=== PATIENT | female | born 1995 ===

== ENCOUNTER 2025-02-28 17:43 | Inpatient (IN) | payer BC ==
[~2025-02-28] VITALS: Ht 167.6 cm; Wt 59.0 kg
[2025-02-28 18:17] LABS: BASOPHILS # (AUTO) 0.01 K/uL (0.00-0.20); BASOPHILS % (AUTO) 0.1 % (0.0-5.0); EOSINOPHILS # (AUTO) 0.07 K/uL (0.00-0.70); EOSINOPHILS % (AUTO) 0.9 % (0.0-8.0); HEMATOCRIT 36.8 % (36-48); IMMATURE GRANULOCYTE ABSOLUTE 0.02 K/uL (0-1); LYMPHOCYTES # (AUTO) 1.5 K/uL (1.0-4.8); LYMPHOCYTES % (AUTO) 18.4 % (21.0-51.0); MEAN CORPUSCULAR HEMOGLOBIN 28.2 pg (27.0-33.0); MEAN CORPUSCULAR HGB CONC 32.1 g/dL (32.0-36.0); MONOCYTES # (AUTO) 0.5 K/uL (0.1-1.0); MONOCYTES % (AUTO) 6.3 % (3.0-13.0); NEUTROPHILS % (AUTO) 74.1 % (40.0-77.0); PLATELET COUNT (AUTO) 312 K/uL (130-400); RED BLOOD CELL COUNT(AUTO) 4.18 MIL/uL (4.00-5.50); RED CELL DISTRIBUTION WIDTH 11.8 % (11.0-15.5); WHITE BLOOD COUNT (AUTO) 8.1 K/uL (4.8-10.8)
[2025-02-28 18:26] LABS: CREATININE 0.7 mg/dL (0.5-1.0); POTASSIUM 3.5 mmol/L (3.5-5.1)
[2025-02-28 18:38] LABS: RAPID GROUP A STREP negative (NEGATIVE)
[2025-02-28] MEDS: 0.9%NACL 1000ML 1,000 ML IV ONE ×2 (18:40→20:01)
[2025-02-28 18:42] LABS: APPEARANCE,URINE CLEAR (CLEAR); BILIRUBIN,URINE NEGATIVE (NEGATIVE); COLOR,URINE LIGHT-YELLOW (YELLOW); GLUCOSE, URINE (UA) NEGATIVE (NEGATIVE); KETONES,URINE 20 mg/dL (NEGATIVE); LEUKOCYTE ESTERASE ,URINE 250 Leu/uL (NEGATIVE); NITRATE,URINE NEGATIVE (NEGATIVE); OCCULT BLOOD,URINE SMALL (NEGATIVE); PROTEIN,URINE NEGATIVE (NEGATIVE)
[2025-02-28 18:43] LABS: SARS-CoV-2, RNA, NAAT NEGATIVE SARS CoV-2 (NEGATIVE)
[2025-02-28 18:44] LABS: ADD UA MICROSCOPIC YES
[2025-02-28 18:47] LABS: BACTERIA,URINE RARE /HPF (None Seen); MUCUS,URINE RARE LPF (None Seen); SQUAMOUS EPITHELIAL CELL,UR FEW /HPF (0-2)
[2025-02-28 18:48] LABS: INFLUENZA TYPE A Negative For Type A (NEGATIVE); INFLUENZA TYPE B Negative For Type B (NEGATIVE)
[2025-02-28 18:49] LABS: AMPHET/METH SCREEN,URINE NEGATIVE (NEGATIVE); BARBITURATE SCREEN, URINE NEGATIVE (NEGATIVE); BENZODIAZEPINES SCREEN,URINE NEGATIVE (NEGATIVE); CANNABINOID SCREEN,URINE NEGATIVE (NEGATIVE); COCAINE SCREEN,URINE NEGATIVE (NEGATIVE); OPIATE SCREEN,URINE NEGATIVE (NEGATIVE); PHENCYCLIDINE SCREEN,URINE NEGATIVE (NEGATIVE)
--- NOTE | 2025-02-28 19:00 | HMCIMG ---
PORTABLE CHEST RADIOGRAPH INDICATION: sob COMPARISON: None FINDINGS: Heart size is normal. The pulmonary vascularity and nai appear normal. No abnormal pulmonary parenchymal opacity or consolidation identified. No significant pleural effusion noted. No pneumothorax detected. IMPRESSION: No radiographic evidence for any acute cardiopulmonary process.
[2025-02-28] MEDS ORDERED: acetaMINOPHEN 325 MG TAB PO ONE (19:30)
[2025-02-28] MEDS: acetaMINOPHEN 500 MG TABLET PO ONE (20:11)
--- NOTE | 2025-02-28 20:34 | ERN ---
General Chief Complaint: Palpitations Stated Complaint: SENT BY DOCTOR Time Seen by MD: 17:46 Time Seen by Midlevel: 17:46 Source: patient History of Present Illness Initial Comments The patient is a 29-year-old female with no significant past medical history presenting to the emergency department for evaluation of palpitations that started last night. The patient was sent to the emergency department by her primary care doctor for an abnormal EKG. According to the EKG performed at her primary care doctor's the patient had an atrial flutter rhythm. She was started on antibiotics four days ago for cervical lymphadenopathy and presumed bacterial infection. On arrival with the patient reports chest pressure and palpitations but denies any other symptoms. Allergies: Coded Allergies: No Known Allergies (Unverified Allergy, Unknown, 02/28/25) Past Medical History Past Medical History: No Pertinent History Past Surgical History: Female( History) LMP: Feb 02, 2025 ROS Dictation CONSTITUTIONAL: Negative except for HPI HEAD/FACE: Negative except for HPI EENT: Negative except for HPI RESPIRATORY: Negative except for HPI GASTROINTESTINAL/ABDOMINAL: Negative except for HPI GENITOURINARY: Negative except for HPI MUSCULOSKELETAL: Negative except for HPI INTEGUMENTARY: Negative except for HPI NEUROLOGICAL/PSYCH: Negative except for HPI HEMATOLOGIC/LYMPHATIC: Negative except for HPI All Systems Negative, Except as noted above. 13 point review of systems assessed and all negative except for above. Physical Exam Physical Exam Dictation Vital Signs reviewed General Appearance: Alert, oriented x 3, no acute distress, well developed, nourished. Head and Face: non-traumatic. Eyes: PERRL, pink conjunctivas, eyelid no trauma, anterior chamber with arcus senilis. Ears: Pinnas intact and no signs of trauma or erythema ear canals clear and no discharge TM no erythema Nose: No discharge, no bleeding. Oropharynx: Mouth normal, tongue pink, pharynx clear,no erythema, tonsils no exudates, no abscesses noted, mucous membrane moist Neck: Supple, non-tender, no thyromegaly, no masses, no JVD, no bruits Breast:Deferred Chest:No tenderness, no crepitus, no paradoxical movement, no retractions Lungs:Clear, well-ventilated, symmetric, no rales, no wheezing, no rhonchi, no stridor, good breath sounds bilaterally Heart: Tachycardia, regular rhythm, no murmur, no gallops Vascular: no peripheral edema, Abdomen: Soft, positive bowel sounds, nondistended, no guarding, nontender, no rebound, no masses no hepatomegaly, no splenomegaly, no Hargrove's sign, no hernias. Rectal: Deferred Genital: Deferred Neurological: Normal speech, motor function intact, sensory function intact Musculoskeletal: Neck nontender, full range of motion, back nontender, full range of motion, Extremities: nontender, full range of motion Skin: Color pink, dry, no turgor, no rash, no lacerations, no abrasions, no contusions. Lymphatic: Deferred Results Laboratory and Microbiology Lab and Micro Result Laboratory Tests Test 02/28/25 18:04 02/28/25 18:15 02/28/25 18:17 02/28/25 18:54 White Blood Count 8.1 K/uL (4.8-10.8) Red Blood Count 4.18 MIL/uL (4.00-5.50) Hemoglobin 11.8 g/dL (12.0-16.0) L Hematocrit 36.8 % (36-48) Mean Corpuscular Volume 88.0 fL (79-99) Mean Corpuscular Hemoglobin 28.2 pg (27.0-33.0) Mean Corpuscular Hemoglobin Concent 32.1 g/dL (32.0-36.0) Red Cell Distribution Width 11.8 % (11.0-15.5) Platelet Count 312 K/uL (130-400) Mean Platelet Volume 9.9 fL (7.5-10.5) Immature Granulocyte % (Auto) 0.2 % (0-1) Neutrophils (%) (Auto) 74.1 % (40.0-77.0) Lymphocytes (%) (Auto) 18.4 % (21.0-51.0) L Monocytes (%) (Auto) 6.3 % (3.0-13.0) Eosinophils (%) (Auto) 0.9 % (0.0-8.0) Basophils (%) (Auto) 0.1 % (0.0-5.0) Neutrophils # (Auto) 6.0 K/uL (1.8-7.7) Lymphocytes # (Auto) 1.5 K/uL (1.0-4.8) Monocytes # (Auto) 0.5 K/uL (0.1-1.0) Eosinophils # (Auto) 0.07 K/uL (0.00-0.70) Basophils # (Auto) 0.01 K/uL (0.00-0.20) Absolute Immature Granulocyte (auto 0.02 K/uL (0-1) Nucleated Red Blood Cells 0.0 % (0.0-0.19) Sodium Level 139 mmol/L (136-145) Potassium Level 3.5 mmol/L (3.5-5.1) Chloride Level 100 mmol/L (101-111) L Carbon Dioxide Level 29 mmol/L (21-32) Blood Urea Nitrogen 8 mg/dL (7-18) Creatinine 0.7 mg/dL (0.5-1.0) Glomerular Filtration Rate Calc 119 mL/min (>90) Random Glucose 105 mg/dL (70-105) Total Calcium 9.3 mg/dL (8.5-10.1) Magnesium Level 2.00 mg/dL (1.80-2.40) Total Creatine Kinase 39 U/L (21-232) Troponin I High Sensitivity < 4 ng/L (4-50) L Monoscreen NEGATIVE (NEGATIVE) Influenza Type A Antigen Negative For Type A Influenza Type B Antigen Negative For Type B SARS-CoV-2, RNA, NAAT NEGATIVE SARS CoV-2 Group A Streptococcus Rapid negative (NEGATIVE) Urine Color LIGHT-YELLOW (YELLOW) Urine Appearance CLEAR (CLEAR) Urine pH 7.0 (5.0-8.0) Urine Specific [place] 1.010 (1.001-1.031) Urine Protein NEGATIVE mg/dL (NEGATIVE) Urine Glucose (UA) NEGATIVE mg/dL (NEGATIVE) Urine Ketones 20 mg/dL (NEGATIVE) H Urine Occult Blood SMALL (NEGATIVE) H Urine Nitrate NEGATIVE (NEGATIVE) Urine Bilirubin NEGATIVE mg/dL (NEGATIVE) Urine Urobilinogen 2.0 mg/dL (0.2-1.0) H Urine Leukocyte Esterase 250 Elizabeth/uL (NEGATIVE) H Urine RBC 2-5 /HPF (0-1) H Urine WBC 6-10 /HPF (0-1) H Urine Squamous Epithelial Cells FEW /HPF (0-2) Urine Bacteria RARE /HPF (None Seen) Urine Opiates Screen NEGATIVE (NEGATIVE) Urine Barbiturates Screen NEGATIVE (NEGATIVE) Urine Phencyclidine Screen NEGATIVE (NEGATIVE) Urine Amphetamines Screen NEGATIVE (NEGATIVE) Urine Benzodiazepines Screen NEGATIVE (NEGATIVE) Urine Cocaine Screen NEGATIVE (NEGATIVE) Urine Marijuana (THC) Screen NEGATIVE (NEGATIVE) Thyroid Stimulating Hormone (TSH) < 0.01 uIU/mL (0.36-3.74) L Test 02/28/25 18:59 Lactic Acid Level 1.2 mmol/L (0.8-2.5) Serum Test, Qualitative NEGATIVE (NEGATIVE) Labs Reviewed?: Yes MDM MDM: Differential diagnosis: Thyroid storm, mono, viral illness, pneumonia, urinary tract infection Rationale: Tests considered and ordered secondary to shared decision making include: Previous outside records reviewed: Old ER visits. Risk of complication and/or morbidity or mortality of patient management: None Medications-Per medication reconciliation Need for hospitalization: Patient does meet criteria for hospitalization. Need for emergency major/minor surgery: No There are no social concerns with this patient. Prescription drug management Prescriptions will include symptomatic care Patient's prior external medical records from other ER visits were reviewed by me as indicated. Prior testing and results from previous visits were reviewed. Prior tests were taken into account with medical decision making and resource utilization, independent historian/historians were used to obtain complete medical history. I independently interpreted the test that were performed, results were reviewed by me and considered findings on radiology if ordered. Medical management and examination interpretation discussions were had by me with other qualified healthcare professionals as indicated for the patient's care. ED Course Orders Procedure Category Date Status Time 12 Lead Ekg Tracing- EKG 02/28/25 Logged Technical 17:51 Cbc With Differential LAB 02/28/25 Complete 17:51 Basic Metabolic Panel LAB 02/28/25 Complete 17:51 Creatine Kinase, Total LAB 02/28/25 Complete 17:51 Influenza Type A & B, LAB 02/28/25 Complete Rapid 17:51 Covid Rna Naat LAB 02/28/25 Complete 17:51 Troponin I High LAB 02/28/25 Complete Sensitivity 17:51 Rapid (Group A Strep) LAB 02/28/25 Complete 17:51 Urinalysis Profile LAB 02/28/25 Complete 17:51 Chest 1vw RAD 02/28/25 Resulted 17:51 Magnesium LAB 02/28/25 Complete 17:51 Monotest LAB 02/28/25 Complete 17:51 Testing, LAB 02/28/25 Complete Serum Hcg 18:05 Drug Screen Urine LAB 02/28/25 Complete 18:05 Lactic Acid LAB 02/28/25 Complete 18:05 Blood Cult [place] 02/28/25 In Process 18:05 0.9%Nacl 1000ml (Ns PHA 02/28/25 Complete 1000ml) 18:30 Culture Urine [place] 02/28/25 In Process 18:44 0.9%Nacl 1000ml (Ns PHA 02/28/25 Complete 1000ml) 19:00 Thyroid Stimulating LAB 02/28/25 Complete Hormone 18:59 Acetaminophen 325 Tab PHA 02/28/25 Complete (Tylenol 325mg Tab 19:30 Acetaminophen 500mg PHA 02/28/25 Complete Tab (Tylenol 500mg T 20:11 Propranolol Hcl PHA 02/28/25 Complete (Inderal) 20:30 Acetaminophen 500mg PHA 02/28/25 Complete Tab (Tylenol 500mg T 20:30 Current Medications Medications (Trade) Dose Ordered Sig/Hanna Route PRN Reason Start Time Stop Time Status Last Admin Dose Admin Acetaminophen (TYLenol 325MG TAB) 650 mg ONCE ONCE PO 02/28/25 19:30 02/28/25 20:16 DC Acetaminophen (TYLenol 500MG TAB) 500 mg STK-MED ONCE .ROUTE 02/28/25 20:11 02/28/25 20:12 DC Acetaminophen (TYLenol 500MG TAB) 1,000 mg ONCE ONCE PO 02/28/25 20:30 02/28/25 20:31 DC Propranolol HCl (Inderal) 1 mg ONCE ONCE IVP 02/28/25 20:30 02/28/25 20:31 DC 02/28/25 20:49 Sodium Chloride 1,000 ml @ 0 mls/hr ONCE ONCE IV 02/28/25 18:30 02/28/25 18:31 DC 02/28/25 18:40 Sodium Chloride 1,000 ml @ 0 mls/hr ONCE ONCE IV 02/28/25 19:00 02/28/25 19:01 DC 02/28/25 20:01 Vital Signs Date Time Temp Pulse Resp B/P (MAP) Pulse Ox O2 Delivery O2 Flow Rate FiO2 02/28/25 19:26 100.2 125 14 116/72 100 Room Air* 0 21 02/28/25 18:22 99.7 140 15 147/74 100 Room Air* 0 21 02/28/25 17:46 99.0 140 18 131/82 100 Room Air 0 DX & DISP Disposition: Inpatient Departure Impression: Primary Impression: Tachycardia Additional Impression: Hyperthyroidism Condition: Stable Referrals: VALDEMAR ZUNIGA (PCP) Time of Disposition: 22:23 I have reviewed the case, and I agree with, Diagnosis and Plan I performed the substantive portion of the visit. I have reviewed and personally made and approve the management plan that is documented in the note by myself or the DAVID. I acknowledge for responsibility for the patient's management plan. TELLO RIVERA February 28, 2025 20:34
[2025-02-28] MEDS: PROPRANOLOL HCL 1 MG/ML VIAL IVP ONE (20:49)
--- NOTE | 2025-02-28 21:09 | HP ---
[facility] HISTORY AND PHYSICAL Date of Service: February 28, 2025 Time of Service: 21:09 VALDEMAR ZUNIGA (PCP) Attending/supervising physicians: Dr. Longoria and Dr. Anastasia Matthews HISTORY OF PRESENT ILLNESS: Ms. Crow is a 29-year-old female with no significant past medical history who presented to [facility] ED for evaluation of palpitations that started last night. The patient was sent to the emergency department by her primary care doctor for an abnormal EKG. Per ED provider according to the EKG performed at her primary care doctor's the patient had an atrial flutter rhythm. Patient reports having chills, fevers, and fatigue onset four days ago and she was started on Zithromax four days ago for cervical lymphadenopathy and presumed bacterial infection. On arrival with the patient reports chest pressure and palpitations. The patient denied any shortness of breath, dizziness, any other problem or concern. The patient presented to ED with a heart rate of 140 beats per minute, 99� F (T- MAX A 100.2�F), HR 18 beats per minute, 131/82, 100% on room air. In ED the patient was administer propranolol 1 mg IV push, Tylenol 1 g, NS 2 L bolus. WBC WNL at 8.1. Lactic acid 1.2. Troponin <4. Drug screen negative. The patient is negative for COVID, influenza, mono screen, rapid strep. Remarkable lab results: TSH <0.01. Chloride 100, UA: Ketones, occult blood, leukocyte esterase, urobilinogen. Chest x-ray: Negative for any acute cardiopulmonary process. ED provider request patient be admitted with the diagnosis of tachycardia and hyperthyroidism. I assessed the patient in room 18. Patient's breathing was even, unlabored, in no distress. 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 Patient was pending propranolol to be administered that was ordered from ED provider. The patient denied any chest pain, palpitations, shortness of breath, any other pain, problem or concern. I informed the patient of labs, diagnostics, and plan of care. She verbalized understanding and is in agreement with the plan. Plan and assessment are listed below. REVIEW OF SYSTEMS 12-point ROS reviewed with the patient. All pertinent positives mentioned above. Otherwise negative, noncontributory, non-pertinent. PAST MEDICAL HISTORY: Negative PAST SURGICAL HISTORY: C-sections PAST SOCIAL HISTORY: Patient denies alcohol, tobacco, illicit drug use. Coded Allergies: No Known Allergies (Unverified Allergy, Unknown, 02/28/25) PHYSICAL EXAM GENERAL APPEARANCE: The patient is awake, alert, and oriented, in no acute cardiopulmonary distress. NEUROLOGICAL: Cranial nerves II-XII grossly intact. Motor is 5/5 in bilateral upper and lower extremities proximal to distal. No sensory deficits. HEENT: Face is symmetric. Pupils are equal and reactive. Extraocular movements are intact. NECK: Supple. No JVD. No thyromegaly. No submental, submandibular, pre- /postauricular, occipital or supraclavicular lymphadenopathy. CHEST: Normal chest expansion. No Telemetry. LUNGS: Absence of any rales, rhonchi or any wheezing. CARDIOVASCULAR: Regular. S1 and S2 normal. No appreciable rubs, murmurs or gallops. ABDOMEN: Soft, nontender, and nondistended. There is no rebound, voluntary guarding, or rigidity. : Deferred. No Hernández. EXTREMITIES: Non-edematous and not cyanotic. No clubbing. Good capillary refill. SKIN: No skin breakdown. Vital Sign (Last 24 Hours) 02/28/25 20:49 Temp 100.0 Pulse 134 Resp 16 B/P (MAP) 115/66 Pulse Ox 99 O2 Delivery Room Air* O2 Flow Rate 0 FiO2 21 LABS: Laboratory: Test 02/28/25 18:59 02/28/25 18:54 02/28/25 18:17 02/28/25 18:15 Range/Units Lactic Acid Level 1.2 0.8-2.5 mmol/L Serum Test, Qualitative NEGATIVE NEGATIVE Thyroid Stimulating Hormone (TSH) < 0.01 L 0.36-3.74 uIU/mL Urine Color LIGHT-YELLOW YELLOW Urine Appearance CLEAR CLEAR Urine pH 7.0 5.0-8.0 Urine Specific [place] 1.010 1.001-1.031 Urine Protein NEGATIVE NEGATIVE mg/dL Urine Glucose (UA) NEGATIVE NEGATIVE mg/dL Urine Ketones 20 H NEGATIVE mg/dL Urine Occult Blood SMALL H NEGATIVE Urine Nitrate NEGATIVE NEGATIVE Urine Bilirubin NEGATIVE NEGATIVE mg/dL Urine Urobilinogen 2.0 H 0.2-1.0 mg/dL Urine Leukocyte Esterase 250 H NEGATIVE Elizabeth/uL Urine RBC 2-5 H 0-1 /HPF Urine WBC 6-10 H 0-1 /HPF Urine Squamous Epithelial Cells FEW 0-2 /HPF Urine Bacteria RARE None Seen /HPF Urine Opiates Screen NEGATIVE NEGATIVE Urine Barbiturates Screen NEGATIVE NEGATIVE Urine Phencyclidine Screen NEGATIVE NEGATIVE Urine Amphetamines Screen NEGATIVE NEGATIVE Urine Benzodiazepines Screen NEGATIVE NEGATIVE Urine Cocaine Screen NEGATIVE NEGATIVE Urine Marijuana (THC) Screen NEGATIVE NEGATIVE Influenza Type A Antigen Negative For Type A NEGATIVE Influenza Type B Antigen Negative For Type B NEGATIVE SARS-CoV-2, RNA, NAAT NEGATIVE SARS CoV-2 NEGATIVE Group A Streptococcus Rapid negative NEGATIVE Test 02/28/25 18:04 Range/Units White Blood Count 8.1 4.8-10.8 K/uL Red Blood Count 4.18 4.00-5.50 MIL/uL Hemoglobin 11.8 L 12.0-16.0 g/dL Hematocrit 36.8 36-48 % Mean Corpuscular Volume 88.0 79-99 fL Mean Corpuscular Hemoglobin 28.2 27.0-33.0 pg Mean Corpuscular Hemoglobin Concent 32.1 32.0-36.0 g/dL Red Cell Distribution Width 11.8 11.0-15.5 % Platelet Count 312 130-400 K/uL Mean Platelet Volume 9.9 7.5-10.5 fL Immature Granulocyte % (Auto) 0.2 0-1 % Neutrophils (%) (Auto) 74.1 40.0-77.0 % Lymphocytes (%) (Auto) 18.4 L 21.0-51.0 % Monocytes (%) (Auto) 6.3 3.0-13.0 % Eosinophils (%) (Auto) 0.9 0.0-8.0 % Basophils (%) (Auto) 0.1 0.0-5.0 % Neutrophils # (Auto) 6.0 1.8-7.7 K/uL Lymphocytes # (Auto) 1.5 1.0-4.8 K/uL Monocytes # (Auto) 0.5 0.1-1.0 K/uL Eosinophils # (Auto) 0.07 0.00-0.70 K/uL Basophils # (Auto) 0.01 0.00-0.20 K/uL Absolute Immature Granulocyte (auto 0.02 0-1 K/uL Nucleated Red Blood Cells 0.0 0.0-0.19 % Sodium Level 139 136-145 mmol/L Potassium Level 3.5 3.5-5.1 mmol/L Chloride Level 100 L 101-111 mmol/L Carbon Dioxide Level 29 21-32 mmol/L Blood Urea Nitrogen 8 7-18 mg/dL Creatinine 0.7 0.5-1.0 mg/dL Glomerular Filtration Rate Calc 119 >90 mL/min Random Glucose 105 70-105 mg/dL Total Calcium 9.3 8.5-10.1 mg/dL Magnesium Level 2.00 1.80-2.40 mg/dL Total Creatine Kinase 39 21-232 U/L Troponin I High Sensitivity < 4 L 4-50 ng/L Monoscreen NEGATIVE NEGATIVE DIAGNOSTICS / RADIOLOGY: [ ] ASSESSMENT: Hyperthyroidism, TSH <0.01 Tachycardia, POA Acute complicated cystitis, POA Acute febrile illness, POA Dehydration/ketonuria Anemia Hypochloremia Urobilinogen PLAN: -Admit to PCCU with telemetry monitoring. -Repeat TSH in a.m.. + T4 and T3 in a.m. -Obtain US of neck to eval the lymph nodes -Start LR at 100 ml/hr. -Start propranolol 10 mg p.o. q.8 hours for tachycardia. (ED administered propranolol1 mg IV push) -Troponin levels and EKG series. -Cardiology consult in the am. -Endocrinology consult in a.m. -Monitor for any fevers. Monitor WBCs, procalcitonin. -Follow blood cultures and urine cultures. -Antibiotics tailored to cultures. Deescalate antibiotics when appropriate -2D echo in a.m. with heart clinic to read. -p.r.n. medications for: Fever, nausea, vomiting, pain management, hypertension, constipation -Oxygen supplement as needed to maintain oxygen levels equal to or greater than 92% -Nitroglycerin sublingual as needed chest pain -Aspirin 81 mg p.o. daily. -Atorvastatin 40 mg PO daily. -Rocephin2 g IV daily. -Blood pressure checks every 4 hours and as needed. -Reconcile home medications once available. -Glucometer checks before meals and at bedtime with insulin regular sliding scale. -AM labs + LFTs. -Monitor renal and liver function -Monitor electrolytes and treat accordingly -DVT and GI prophylaxis: Lovenox and Protonix. ADVANCED CARE PLANNING 1. Which of the following were discussed? Hospice Care - No Therapeutic options - Yes Advance Directives - Yes Other discussions - 2. Discussed with who? Patient 3. Voluntary nature of this service was explained to the patient? Yes 4. Amount of time spent - __ over 35 minutes 5. Reviewed by Physician? (if this service was performed by DAVID) Yes ATTESTATION BY PHYSICIAN I have seen and examined the patient. I reviewed the documentation, medical decision making, and treatment plan as noted by the mid-level provider above. I agree with the findings and plan of care. JESIKA MAKI BRANCH SPECIALIST February 28, 2025 21:09
[2025-02-28] MEDS: acetaMINOPHEN 500 MG TABLET ONE (21:19)
[2025-02-28 21:39] VITALS: TEMP 100
[2025-02-28] MEDS ORDERED: PoTASSium chl 10% ELIXIR 20MEQ 20 MEQ/15 ML UDCUP PO PRN (23:30)
[2025-02-28] MEDS ORDERED: DEXTROSE 50%-WATER 50 ML DISP.SYRIN IV PRN (23:30)
[2025-02-28] MEDS ORDERED: ondanSETRON 4MG INJ IVP PRN (23:30)
[2025-02-28] MEDS ORDERED: TEMAZepam 15 MG CAPSULE PO PRN (23:30)
[2025-02-28] MEDS ORDERED: MAGNESIUM 2GM PREMIX 50ML 50 ML IV PRN (23:30)
[2025-02-28] MEDS ORDERED: LAbetaLOL 20MG SYG IV PRN (23:30)
[2025-02-28] MEDS ORDERED: acetaMINOPHEN 650 MG SUPPOSITORY RC PRN (23:30)
[2025-02-28] MEDS ORDERED: PoTASSium chloRIDE 20MEQ/100ML 100 ML IV PRN (23:30)
[2025-02-28] MEDS ORDERED: LACTULOSE 20 GM/30 ML UDCUP PO PRN (23:30)
[2025-02-28] MEDS ORDERED: PoTASSium chloRIDE 20MEQ ER 20 MEQ ERTAB PO PRN (23:30)
[2025-02-28] MEDS ORDERED: doCUSate SODIUM 100 MG CAP PO PRN (23:30)
[2025-02-28] MEDS ORDERED: GLUCAGON 1MG KIT 1 MG ML IM PRN (23:30)
[2025-02-28] MEDS: CEFTRIAXONE 2GM VIAL IVPB SCH (23:56)
--- NOTE | 2025-03-01 00:54 | NUR ---
REPORT GIVEN TO CLAUDE CAMACHO
[2025-03-01 02:19] LABS: HEMOGLOBIN A1C 5.3 % (4.0-6.0)
[2025-03-01] MEDS: PROPRANOLOL HCL 10 MG TAB PO SCH (05:12)
[2025-03-01] MEDS: LACTATED RINGERS 1000ML 1,000 ML IV SCH (05:14)
[2025-03-01 05:53] VITALS: PULSE 106
[2025-03-01] MEDS: acetaMINOPHEN 500 MG TABLET PO ONE (06:05)
[2025-03-01] MEDS: acetaMINOPHEN 325 MG TAB PO PRN (06:14)
[2025-03-01 06:27] VITALS: BP 118/76; PULSE 106
[2025-03-01] MEDS: INSULIN humuLIN R 100 UNIT/ML 3ML SQ SCH (06:29)
[2025-03-01 06:34] LABS: HEMATOCRIT 31.3 % (36-48); MEAN CORPUSCULAR HEMOGLOBIN 28.3 pg (27.0-33.0); MEAN CORPUSCULAR HGB CONC 31.9 g/dL (32.0-36.0); MEAN CORPUSCULAR VOLUME 88.7 fL (79-99); RED BLOOD CELL COUNT(AUTO) 3.53 MIL/uL (4.00-5.50); RED CELL DISTRIBUTION WIDTH 11.7 % (11.0-15.5); WHITE BLOOD COUNT (AUTO) 5.1 K/uL (4.8-10.8)
[2025-03-01 06:56] LABS: ALANINE AMINOTRANSFERASE 11 U/L (12-78); ALBUMIN 2.6 g/dL (3.5-5.0); ASPARTATE AMINOTRANSFERASE 12 U/L (10-37); BILIRUBIN,DIRECT 0.1 mg/dL (0.0-0.3); BILIRUBIN,TOTAL 0.5 mg/dL (0.2-1.0); CARBON DIOXIDE 26 mmol/L (21-32); CHLORIDE 104 mmol/L (101-111); CREATININE 0.5 mg/dL (0.5-1.0); GLOMERULAR FILTR. RATE CALC 129 mL/min (>90); GLUCOSE,RANDOM 106 mg/dL (70-105); PHOSPHORUS 3.3 mg/dL (2.5-4.9); POTASSIUM 4.3 mmol/L (3.5-5.1); SODIUM SERUM 138 mmol/L (136-145); T4 (THYROXINE) 23.2 ug/dL (4.7-13.3); UREA NITROGEN, BLOOD 6 mg/dL (7-18)
[2025-03-01 06:59] LABS: THYROID STIMULATING HORMONE < 0.01 uIU/mL (0.36-3.74)
--- NOTE | 2025-03-01 07:49 | EKG ---
[facility] Test Date: 2025-03-01 Test Time: 05:13:58 Pat Name: JOCELYNE BONDS Department: EDHIP Room: 222 Gender: F Baseball Glove Shaper: [id number] : 1995 Requested By: JESIKA MAKI Order Number: [id number] Reading MD: Xochilt Dawson Measurements Intervals [place] Rate: 118 P: 72 AK: 137 QRS: 34 QRSD: 78 T: 21 QT: 298 QTc: 418 Interpretive Statements Sinus tachycardia No previous ECG available for comparison Electronically Signed On 03-02-2025 09:18:58 CDT by Xochilt Dawson Please click the below link to view image of tracing.
--- NOTE | 2025-03-01 07:51 | EKG ---
[facility] Test Date: 2025-02-28 Test Time: 17:54:40 Pat Name: JOCELYNE BONDS Department: EDHIP Room: 222 Gender: F Program Technician: [id number] : 1995 Requested By: TELLO RIVERA Order Number: [id number] Reading MD: Xochilt Dawson Measurements Intervals [place] Rate: 143 P: 61 NJ: 126 QRS: 41 QRSD: 63 T: 23 QT: 272 QTc: 420 Interpretive Statements Sinus tachycardia Probable left atrial enlargement No previous ECG available for comparison Electronically Signed On 03-02-2025 09:18:48 CDT by Xochilt Dawson Please click the below link to view image of tracing.
[2025-03-01] MEDS: FAMOTIDINE 20MG TAB PO SCH (08:34)
[2025-03-01] MEDS: ASPIRIN 81MG CHEW TAB PO SCH (08:34)
[2025-03-01] MEDS: ENOXAPARIN SODIUM 40 MG/0.4 ML SYRINGE SQ SCH (08:35)
--- NOTE | 2025-03-01 08:53 | HMCIMG ---
Exam Type: US SOFT TISSUE NECK Clinical Information: neck lymph nodes evaluation Comparison: None Findings and impression: Multiple normal sized lymph nodes of the neck seen bilaterally. No obvious lymphadenopathy noted. No other abnormalities.
--- NOTE | 2025-03-01 09:54 | NUR ---
ENDOCRINOLOGY CALLED. NO ANSWER. MESSAGE LEFT.
--- NOTE | 2025-03-01 11:07 | NUR ---
DCP: HOME Pt is a nurse at [employer]. Pt and her Tomy Suazo [phone] live with her parents in mobile home. Pt denies issues affording utilities or food. Pt is independent, drives, no DME or in home care services. PCP is Cristino Jessica and uses [facility] on [address] for rx needs. DCP is home with Addendum: 03/01/25 at 1108 by KAMLESH CARDONA SS Amended: Links added.
--- NOTE | 2025-03-01 11:11 | HMCSR ---
APPROVED REPORT EXAM: Two-dimensional and M-mode echocardiogram with Doppler and color Doppler. INDICATION ICD: tachycardia 2D Dimensions RVDd3.9 cmLVEF(%)51.6 (>50%)LVED Vol(simp.)85.0 mL IVSd0.6 (0.7-1.1cm)FS(%)26 %LVES Vol(simp.)40.0 mL LVDd4.7 (3.8-5.6cm)LA (2D)3.1 (1.6-4.0cm)LVEF(%, simp.)53 % PWd0.5 (0.7-1.1cm)Ao Root(2D)2.7 (2.0-3.7cm)LA ESV INDEX (BP)25.55 mL/m2 IVSs0.9 cmLVOT diam2.1 (1.8-2.4cm) LVDs3.5 (2.5-4.0cm)IVC diam2.5 cm PWs0.7 cm Deformation Strain Apical 4-17.9 % Apical 2-18.6 % Apical 3-18.9 % Global Strain-18.5 % M-Mode Dimensions EPSS0.5 cm LA (MM)3.1 (1.6-4.0cm) Ao Root(MM)2.6 (2.0-3.7cm) Aortic Valve AoV Vmax1.2 m/Aidan Peak GR6.1 mmHgLVOT Vmax0.9 m/s AoV VTI0.2 mAo Mean GR3.7 mmHgLVOT VTI0.16 m GHADA (VMAX)2.37 cm2AVA (VTI) 2.4 cm2 Mitral Valve MV E Vmax89.9 cm/sDECEL Wixf102 ms MV A Vmax69.3 cm/sP 1/2 T31 ms E/A ratio1.3MVA (PHT)7.2 cm2 TDI E/E' Medial9.0E/E' Lateral6.7 Medial E' Peak V9.95 cm/sLateral E' Peak V13.44 cm/s Pulmonary Valve PV Vmax0.9 m/sPV VTI0.17 mPV Mean GR2.0 mmHg PV Peak GR3.3 mmHg Tricuspid Valve TR Vmax2.3 m/sRVSP21.5 mmHg TR Peak GR22.8 mmHg Left Ventricle The left ventricle is normal size. There is normal left ventricular wall thickness. LVEF is 50-55%. T he left ventricular diastolic function is normal. Right Ventricle The right ventricle is normal size. The right ventricular systolic function is normal. Atria The left atrium size is normal. The right atrium size is normal. Aortic Valve The aortic valve is normal in structure. No aortic regurgitation is present. There is no aortic valvu lar stenosis. Mitral Valve The mitral valve is normal in structure. Mitral regurgitation is mild. There is no mitral valve steno sis. Tricuspid Valve The tricuspid valve is normal in structure. There is mild tricuspid valve regurgitation noted. Pulmonic Valve The pulmonary valve is normal in structure. There is no pulmonic valvular regurgitation. Great Vessels The aortic root is normal in size. The IVC is dilated and collapses >50% with inspiration. Pericardium There is no pericardial effusion. Conclusion The left ventricle is normal size. LVEF is 50-55%. The left ventricular diastolic function is normal. The right ventricle is normal size. The right ventricular systolic function is normal. The left atrium size is normal. The right atrium size is normal. Mitral regurgitation is mild. There is mild tricuspid valve regurgitation noted. The IVC is dilated and collapses >50% with inspiration. There is no pericardial effusion.
--- NOTE | 2025-03-01 12:17 | CONS ---
[facility] CONSULTATION NOTE Date Patient Seen: March 01, 2025 Time of Visit: 12:13 Reason for Consultation: [Tachycardia due to hyperthyroidism ] History of Present Illness: [Patient is a 29 yo F with no significant past medical history who presented to [facility] ED for evaluation of palpitations that started last night. The patient was sent to the emergency department by her primary care doctor for an abnormal EKG. Per ED provider according to the EKG performed at her primary care doctor's the patient had an atrial flutter rhythm. Patient reports having chills, fevers, and fatigue onset four days ago and she was started on Zithromax four days ago for cervical lymphadenopathy and presumed bacterial infection. On arrival, patient noted to have sinus tachycardia with HR 140s bpm and was given labetolol IV and now is 110-120s bpm. She has been started on propranolol 10 mg q8h for thyroid storm and pending Endocrinology visit. ] Past Medical History: [ ] Past Surgical History: [ ] Family History: [ ] Social History: [ ] Habits: [Never] smoker. [Denies] alcohol consumption. [Denies] illicit drug use Home Meds: [ ] Current Meds: [ ] Review of Systems: CONST: [+ fever, fatigue, and weight changes.] EYES: [No recent vision problems.] ENT: [No congestion, ear pain, or sore throat.] C/V: [+ chest pain, palpitations.] RESP: [No cough, congestion, wheezing or shortness of breath.] GI: [No abdominal pain, nausea, vomiting, constipation, or diarrhea.] : [No incontinence or dysuria.] SKIN: [No rash.] NEURO: [No headache, focal numbness or weakness, dizziness, or seizures.] PSYCH: [No depression or anxiety.] HEME: [No abnormal bruising or bleeding.] LYMPH: [No swollen glands.] Physical Examination: GENERAL: [No acute distress.] HEAD: [Normal with no signs of head trauma.] EYES: [PERRLA, EOMI, conjunctiva and sclera normal.] ENT: [Hearing grossly intact, normal oropharynx.] NECK: [Supple without JVD. There is no tenderness, lymphadenopathy, or masses. No thyromegaly. Normal carotid upstrokes without bruits.] LUNGS: [Clear breath sounds bilaterally. There are right basilar rales one third of the way up the chest. No wheezes, or rhonchi.] HEART: [Normal rhythm, tachycardia. Normal S1 and S2 without mumurs, gallop or rub.] VASC: [Peripheral pulses +2 bilaterally.] ABD: [Bowel sounds normal, soft, nontender, no masses, no organomegaly. No audible bruits.] : [Not examined] LYMPH: [No lymphadenopathy noted.] EXT: [No clubbing, cyanosis or edema.] SKIN: [No rashes or lesions noted.] NEURO: [Awake, alert, and oriented x3. No focal sensory or strength deficits noted.] Vital Signs (last 8hr) Date Time Temp Pulse Resp B/P (MAP) Pulse Ox O2 Delivery O2 Flow Rate FiO2 03/01/25 11:52 111 14 113/72 99 Room Air* 0 21 03/01/25 09:49 112 14 111/67 100 Room Air* 0 21 03/01/25 07:23 98.2 104 17 118/76 98 Room Air* 0 21 03/01/25 06:27 106 118/76 03/01/25 05:53 106 03/01/25 04:30 98.4 115 18 121/72 99 Room Air* 0 21 Laboratory: [ ] Hematology Labs: Test 03/01/25 06:06 02/28/25 18:04 Range/Units White Blood Count 5.1 # 4.8-10.8 K/uL Red Blood Count 3.53 L 4.00-5.50 MIL/uL Hemoglobin 10.0 L 12.0-16.0 g/dL Hematocrit 31.3 L 36-48 % Mean Corpuscular Volume 88.7 79-99 fL Mean Corpuscular Hemoglobin 28.3 27.0-33.0 pg Mean Corpuscular Hemoglobin Concent 31.9 L 32.0-36.0 g/dL Red Cell Distribution Width 11.7 11.0-15.5 % Platelet Count 241 130-400 K/uL Mean Platelet Volume 10.0 7.5-10.5 fL Nucleated Red Blood Cells 0.0 0.0-0.19 % Immature Granulocyte % (Auto) 0.2 0-1 % Neutrophils (%) (Auto) 74.1 40.0-77.0 % Lymphocytes (%) (Auto) 18.4 L 21.0-51.0 % Monocytes (%) (Auto) 6.3 3.0-13.0 % Eosinophils (%) (Auto) 0.9 0.0-8.0 % Basophils (%) (Auto) 0.1 0.0-5.0 % Neutrophils # (Auto) 6.0 1.8-7.7 K/uL Lymphocytes # (Auto) 1.5 1.0-4.8 K/uL Monocytes # (Auto) 0.5 0.1-1.0 K/uL Eosinophils # (Auto) 0.07 0.00-0.70 K/uL Basophils # (Auto) 0.01 0.00-0.20 K/uL Absolute Immature Granulocyte (auto 0.02 0-1 K/uL Chemistry Labs: Test 03/01/25 06:12 03/01/25 06:06 02/28/25 18:59 02/28/25 18:04 Range/Units Whole Blood Glucose 105 70-110 MG/DL Sodium Level 138 136-145 mmol/L Potassium Level 4.3 3.5-5.1 mmol/L Chloride Level 104 101-111 mmol/L Carbon Dioxide Level 26 21-32 mmol/L Blood Urea Nitrogen 6 L 7-18 mg/dL Creatinine 0.5 0.5-1.0 mg/dL Glomerular Filtration Rate Calc 129 >90 mL/min Random Glucose 106 H 70-105 mg/dL Total Calcium 8.6 8.5-10.1 mg/dL Phosphorus Level 3.3 2.5-4.9 mg/dL Magnesium Level 2.00 1.80-2.40 mg/dL Total Bilirubin 0.5 0.2-1.0 mg/dL Direct Bilirubin 0.1 0.0-0.3 mg/dL Aspartate Amino Transf (AST/SGOT) 12 10-37 U/L Alanine Aminotransferase (ALT/SGPT) 11 L 12-78 U/L Alkaline Phosphatase 91 50-136 U/L Troponin I High Sensitivity < 4 L 4-50 ng/L Total Protein 7.0 6.0-8.3 g/dL Albumin 2.6 L 3.5-5.0 g/dL Thyroid Stimulating Hormone (TSH) < 0.01 L 0.36-3.74 uIU/mL Free Thyroxine (T4) Direct 6.46 H 0.76-1.46 ng/dL Thyroxine (T4) 23.2 H 4.7-13.3 ug/dL Free Triiodothyronine (T3) pg/mL 14.96 H 2.18-3.98 pg/mL Lactic Acid Level 1.2 0.8-2.5 mmol/L Serum Test, Qualitative NEGATIVE NEGATIVE Hemoglobin A1c 5.3 4.0-6.0 % Estimated Average Glucose (eAG) 105 70-126 mg/dL Total Creatine Kinase 39 21-232 U/L Diagnostics / Radiology: [Copy/Paste Echos/Imaging Report here] Plan: [ #Sinus tachycardia d/t Thyroid storm -2d echo normal -propranolol 10 mg q8h -recommend to treat underlying hyperthyroid state -Tele monitoring Xochilt Dawson MD] XOCHILT DWASON MD March 01, 2025 12:17
--- NOTE | 2025-03-01 12:20 | PN ---
[facility] PROGRESS NOTE Date of Service: March 01, 2025 Time of Service: 12:11 SUBJECTIVE: Ms. Bonds is a 29-year-old female with no significant past medical history who presented to [facility] ED for evaluation of palpitations that started last night. The patient was sent to the emergency department by her primary care doctor for an abnormal EKG. Per ED provider according to the EKG performed at her primary care doctor's the patient had an atrial flutter rhythm. Patient reports having chills, fevers, and fatigue onset four days ago and she was started on Zithromax four days ago for cervical lymphadenopathy and presumed bacterial infection. On arrival with the patient reports chest pressure and palpitations. The patient denied any shortness of breath, dizziness, any other problem or concern.The patient presented to ED with a heart rate of 140 beats per minute, 99� F (T-MAX A 100.2�F), HR 18 beats per minute, 131/82, 100% on room air. In ED the patient was administer propranolol 1 mg IV push, Tylenol 1 g, NS 2 L bolus. WBC WNL at 8.1. Lactic acid 1.2. Troponin <4. Drug screen negative. The patient is negative for COVID, influenza, mono screen, rapid strep. Remarkable lab results: TSH <0.01. Chloride 100, UA: Ketones, occult blood, leukocyte esterase, urobilinogen. Chest x-ray: Negative for any acute cardiopulmonary process. 03/01: Patient was seen this morning at bedside. The patient states denies chest pain, shortness of breath, nausea, vomiting, fever, chills. Patient states she still feels episodes of her heart racing. The patient was seen this morning by cardiology. Per cardiology, continue 10 mg Propranolol TID. Patient will be started on Methimazole, dosing per Chief Privacy Officer recommendations. Thyroid st imulating immunoglobulin pending. REVIEW OF SYSTEMS 12-point ROS reviewed with the patient. All pertinent positives mentioned above. Otherwise negative, noncontributory, non-pertinent. PHYSICAL EXAM GENERAL APPEARANCE: The patient is awake, alert, and oriented, in no acute cardiopulmonary distress. NEUROLOGICAL: Cranial nerves II-XII grossly intact. Motor is 5/5 in bilateral upper and lower extremities proximal to distal. No sensory deficits. HEENT: Face is symmetric. Pupils are equal and reactive. Extraocular movements are intact. NECK: Supple. No JVD. No thyromegaly. No submental, submandibular, pre- /postauricular, occipital or supraclavicular lymphadenopathy. CHEST: Normal chest expansion. No Telemetry. LUNGS: Absence of any rales, rhonchi or any wheezing. CARDIOVASCULAR: Regular. S1 and S2 normal. No appreciable rubs, murmurs or gallops. ABDOMEN: Soft, nontender, and nondistended. There is no rebound, voluntary guarding, or rigidity. : Deferred. No Hernández. EXTREMITIES: Non-edematous and not cyanotic. No clubbing. Good capillary refill. SKIN: No skin breakdown. Vital Signs (last 8hr) Date Time Temp Pulse Resp B/P (MAP) Pulse Ox O2 Delivery O2 Flow Rate FiO2 03/01/25 11:52 111 14 113/72 99 Room Air* 0 21 03/01/25 09:49 112 14 111/67 100 Room Air* 0 21 03/01/25 07:23 98.2 104 17 118/76 98 Room Air* 0 21 03/01/25 06:27 106 118/76 03/01/25 05:53 106 03/01/25 04:30 98.4 115 18 121/72 99 Room Air* 0 21 LABS: Laboratory: Test 03/01/25 06:12 03/01/25 06:06 02/28/25 18:59 02/28/25 18:17 Range/Units Whole Blood Glucose 105 70-110 MG/DL White Blood Count 5.1 # 4.8-10.8 K/uL Red Blood Count 3.53 L 4.00-5.50 MIL/uL Hemoglobin 10.0 L 12.0-16.0 g/dL Hematocrit 31.3 L 36-48 % Mean Corpuscular Volume 88.7 79-99 fL Mean Corpuscular Hemoglobin 28.3 27.0-33.0 pg Mean Corpuscular Hemoglobin Concent 31.9 L 32.0-36.0 g/dL Red Cell Distribution Width 11.7 11.0-15.5 % Platelet Count 241 130-400 K/uL Mean Platelet Volume 10.0 7.5-10.5 fL Nucleated Red Blood Cells 0.0 0.0-0.19 % Sodium Level 138 136-145 mmol/L Potassium Level 4.3 3.5-5.1 mmol/L Chloride Level 104 101-111 mmol/L Carbon Dioxide Level 26 21-32 mmol/L Blood Urea Nitrogen 6 L 7-18 mg/dL Creatinine 0.5 0.5-1.0 mg/dL Glomerular Filtration Rate Calc 129 >90 mL/min Random Glucose 106 H 70-105 mg/dL Total Calcium 8.6 8.5-10.1 mg/dL Phosphorus Level 3.3 2.5-4.9 mg/dL Magnesium Level 2.00 1.80-2.40 mg/dL Total Bilirubin 0.5 0.2-1.0 mg/dL Direct Bilirubin 0.1 0.0-0.3 mg/dL Aspartate Amino Transf (AST/SGOT) 12 10-37 U/L Alanine Aminotransferase (ALT/SGPT) 11 L 12-78 U/L Alkaline Phosphatase 91 50-136 U/L Troponin I High Sensitivity < 4 L 4-50 ng/L Total Protein 7.0 6.0-8.3 g/dL Albumin 2.6 L 3.5-5.0 g/dL Thyroid Stimulating Hormone (TSH) < 0.01 L 0.36-3.74 uIU/mL Free Thyroxine (T4) Direct 6.46 H 0.76-1.46 ng/dL Thyroxine (T4) 23.2 H 4.7-13.3 ug/dL Free Triiodothyronine (T3) pg/mL 14.96 H 2.18-3.98 pg/mL Lactic Acid Level 1.2 0.8-2.5 mmol/L Serum Test, Qualitative NEGATIVE NEGATIVE Urine Color LIGHT-YELLOW YELLOW Urine Appearance CLEAR CLEAR Urine pH 7.0 5.0-8.0 Urine Specific [place] 1.010 1.001-1.031 Urine Protein NEGATIVE NEGATIVE mg/dL Urine Glucose (UA) NEGATIVE NEGATIVE mg/dL Urine Ketones 20 H NEGATIVE mg/dL Urine Occult Blood SMALL H NEGATIVE Urine Nitrate NEGATIVE NEGATIVE Urine Bilirubin NEGATIVE NEGATIVE mg/dL Urine Urobilinogen 2.0 H 0.2-1.0 mg/dL Urine Leukocyte Esterase 250 H NEGATIVE Elizabeth/uL Urine RBC 2-5 H 0-1 /HPF Urine WBC 6-10 H 0-1 /HPF Urine Squamous Epithelial Cells FEW 0-2 /HPF Urine Bacteria RARE None Seen /HPF Urine Opiates Screen NEGATIVE NEGATIVE Urine Barbiturates Screen NEGATIVE NEGATIVE Urine Phencyclidine Screen NEGATIVE NEGATIVE Urine Amphetamines Screen NEGATIVE NEGATIVE Urine Benzodiazepines Screen NEGATIVE NEGATIVE Urine Cocaine Screen NEGATIVE NEGATIVE Urine Marijuana (THC) Screen NEGATIVE NEGATIVE Test 02/28/25 18:15 02/28/25 18:04 Range/Units Influenza Type A Antigen Negative For Type A NEGATIVE Influenza Type B Antigen Negative For Type B NEGATIVE SARS-CoV-2, RNA, NAAT NEGATIVE SARS CoV-2 NEGATIVE Group A Streptococcus Rapid negative NEGATIVE Immature Granulocyte % (Auto) 0.2 0-1 % Neutrophils (%) (Auto) 74.1 40.0-77.0 % Lymphocytes (%) (Auto) 18.4 L 21.0-51.0 % Monocytes (%) (Auto) 6.3 3.0-13.0 % Eosinophils (%) (Auto) 0.9 0.0-8.0 % Basophils (%) (Auto) 0.1 0.0-5.0 % Neutrophils # (Auto) 6.0 1.8-7.7 K/uL Lymphocytes # (Auto) 1.5 1.0-4.8 K/uL Monocytes # (Auto) 0.5 0.1-1.0 K/uL Eosinophils # (Auto) 0.07 0.00-0.70 K/uL Basophils # (Auto) 0.01 0.00-0.20 K/uL Absolute Immature Granulocyte (auto 0.02 0-1 K/uL Hemoglobin A1c 5.3 4.0-6.0 % Estimated Average Glucose (eAG) 105 70-126 mg/dL Total Creatine Kinase 39 21-232 U/L Monoscreen NEGATIVE NEGATIVE Current Medications Medications (Trade) Dose Ordered Sig/Hanna Route PRN Reason Start Time Stop Time Status Last Admin Dose Admin Acetaminophen (TYLenol 325MG TAB) 650 mg Q6H PRN PO FEVER/MILD PAIN LEVEL 1-3 02/28/25 23:30 03/30/25 23:29 03/01/25 06:14 650 MG Acetaminophen (TYLenol 650MG SUPPOSITORY) 650 mg Q6H PRN RC FEVER / MILD PAIN 1-3 IF NPO 02/28/25 23:30 03/30/25 23:29 Aspirin (Aspirin 81mg Chew Tab) 81 mg DAILY PO 03/01/25 09:00 03/31/25 08:59 03/01/25 08:34 81 MG Ceftriaxone Sodium (Rocephin 2gm Inj) 2 gm Q24H IVPB 02/28/25 23:30 03/10/25 23:29 02/28/25 23:56 2 GM Dextrose (D50w) 50 ml AD PRN IV HYPOGLYCEMIA PROTOCOL 02/28/25 23:30 03/30/25 23:29 Docusate Sodium (COLace 100MG CAP) 100 mg BID PRN PO c 02/28/25 23:30 03/30/25 23:29 Enoxaparin Sodium (Lovenox) 40 mg DAILY SQ 03/01/25 09:00 03/31/25 08:59 03/01/25 08:35 40 MG Famotidine (Pepcid 20mg Tab) 20 mg BID PO 03/01/25 09:00 03/31/25 08:59 03/01/25 08:34 20 MG Glucagon (Glucagon 1mg Kit) 1 mg AD PRN IM HYPOGLYCEMIA PROTOCOL 02/28/25 23:30 03/30/25 23:29 Insulin Human Regular (humuLIN R 100 UNIT/ML 3ML) INSULIN SLIDING SCAL... ACHS SQ 03/01/25 07:30 03/31/25 07:29 Labetalol HCl (TRANdate 20MG SYG) 10 mg Q2H PRN IV SBP GREATER THAN 160 02/28/25 23:30 03/30/25 23:29 Lactated Ringer's 1,000 ml @ 100 mls/hr Q10H IV 03/01/25 05:00 03/31/25 04:59 03/01/25 05:14 100 MLS/HR Lactulose (Constulose 20gm/ 30ml Udcup) 20 gm Q6H PRN PO CONSTIPATION 02/28/25 23:30 03/30/25 23:29 Magnesium Sulfate 50 ml @ 0 mls/hr PROTOCOL PRN IV MAGNESIUM PROTOCOL 02/28/25 23:30 03/30/25 23:29 Methimazole (tapaZOLE) 5 mg DAILY PO 03/02/25 09:00 04/01/25 08:59 Ondansetron HCl (zoFRAN 4MG INJ) 4 mg Q6H PRN IVP NAUSEA/VOMITING 02/28/25 23:30 03/30/25 23:29 Potassium Chloride 100 ml @ 100 mls/hr AD PRN IV POTASSIUM PROTOCOL 02/28/25 23:30 03/30/25 23:29 Potassium Chloride (K-Dur/Klor-Con 20meq) 20 meq AD PRN PO POTASSIUM PROTOCOL 02/28/25 23:30 03/30/25 23:29 Potassium Chloride (KCl 10% Elixir 20meq/15ml) 20 meq AD PRN PO POTASSIUM PROTOCOL 02/28/25 23:30 03/30/25 23:29 Propranolol HCl (Inderal) 10 mg Q8H PO 03/01/25 05:00 03/31/25 04:59 03/01/25 05:12 10 MG Temazepam (restORIL 15 MG CAP) 15 mg HS PRN PO INSOMNIA/SLEEP 02/28/25 23:30 03/30/25 23:29 DIAGNOSTICS / RADIOLOGY: [address] [address] IMAGING REPORT Signed PATIENT: JOCELYNE BONDS MR#: [id number] : 1995 SEX: F AGE: 29 LOCATION: [facility] ORDER [id number] STATUS: ADM IN REPORT#: [id number] SERVICE 19 REASON: tachycardia ORDERING PHYSICIAN: JESIKA MAKI PROCEDURE: ECHO CMP - ECHO 2-D COMPLETE APPROVED REPORT EXAM: Two-dimensional and M-mode echocardiogram with Doppler and color Doppler. INDICATION ICD: tachycardia 2D Dimensions RVDd 3.9 cm LVEF(%) 51.6 (>50%) LVED Vol(simp.) 85.0 mL IVSd 0.6 (0.7-1.1cm) FS(%) 26 % LVES Vol(simp.) 40.0 mL LVDd 4.7 (3.8-5.6cm) LA (2D) 3.1 (1.6-4.0cm) LVEF(%, simp.) 53 % PWd 0.5 (0.7-1.1cm) Ao Root(2D) 2.7 (2.0-3.7cm) LA ESV INDEX (BP) 25.55 mL/m2 IVSs 0.9 cm LVOT diam 2.1 (1.8-2.4cm) LVDs 3.5 (2.5-4.0cm) IVC diam 2.5 cm PWs 0.7 cm Deformation Strain Apical 4 -17.9 % Apical 2 -18.6 % Apical 3 -18.9 % Global Strain -18.5 % M-Mode Dimensions EPSS 0.5 cm LA (MM) 3.1 (1.6-4.0cm) Ao Root(MM) 2.6 (2.0-3.7cm) Aortic Valve AoV Vmax 1.2 m/s Ao Peak GR 6.1 mmHg LVOT Vmax 0.9 m/s AoV VTI 0.2 m Ao Mean GR 3.7 mmHg LVOT VTI 0.16 m GHADA (VMAX) 2.37 cm2 GHADA (VTI) 2.4 cm2 Mitral Valve MV E Vmax 89.9 cm/s DECEL Time 151 ms MV A Vmax 69.3 cm/s P 1/2 T 31 ms E/A ratio 1.3 MVA (PHT) 7.2 cm2 TDI E/E' Medial 9.0 E/E' Lateral 6.7 Medial E' Peak V 9.95 cm/s Lateral E' Peak V 13.44 cm/s Pulmonary Valve PV Vmax 0.9 m/s PV VTI 0.17 m PV Mean GR 2.0 mmHg PV Peak GR 3.3 mmHg Tricuspid Valve TR Vmax 2.3 m/s RVSP 21.5 mmHg TR Peak GR 22.8 mmHg Left Ventricle The left ventricle is normal size. There is normal left ventricular wall thickness. LVEF is 50-55%. The left ventricular diastolic function is normal. Right Ventricle The right ventricle is normal size. The right ventricular systolic function is normal. Atria The left atrium size is normal. The right atrium size is normal. Aortic Valve The aortic valve is normal in structure. No aortic regurgitation is present. There is no aortic valvular stenosis. Mitral Valve The mitral valve is normal in structure. Mitral regurgitation is mild. There is no mitral valve stenosis. Tricuspid Valve The tricuspid valve is normal in structure. There is mild tricuspid valve regurgitation noted. Pulmonic Valve The pulmonary valve is normal in structure. There is no pulmonic valvular regurgitation. Great Vessels The aortic root is normal in size. The IVC is dilated and collapses >50% with inspiration. Pericardium There is no pericardial effusion. Conclusion The left ventricle is normal size. LVEF is 50-55%. The left ventricular diastolic function is normal. The right ventricle is normal size. The right ventricular systolic function is normal. The left atrium size is normal. The right atrium size is normal. Mitral regurgitation is mild. There is mild tricuspid valve regurgitation noted. The IVC is dilated and collapses >50% with inspiration. There is no pericardial effusion. DICTATED BY: JOÃO PAEZ MD DATE: 03/01/25 0921 ELECTRONICALLY SIGNED BY: JOÃO PAEZ MD DATE: 03/01/25 1111 [facility] [address] [place] [id number] IMAGING REPORT Signed PATIENT: JOCELYNE BONDS MR#: [id number] : 1995 SEX: F AGE: 29 LOCATION: [facility] ORDER [id number] STATUS: ADM IN REPORT#: [id number] SERVICE [id number] REASON: neck lymph nodes evaluation ORDERING PHYSICIAN: JESIKA MAKI WINCH RUNNER PROCEDURE: SOFT NECK - US SOFT TISSUE NECK Exam Type: US SOFT TISSUE NECK Clinical Information: neck lymph nodes evaluation Comparison: None Findings and impression: Multiple normal sized lymph nodes of the neck seen bilaterally. No obvious lymphadenopathy noted. No other abnormalities. DICTATED BY: FERMÍN WELLS MD DATE: 03/01/25 0850 ELECTRONICALLY SIGNED BY: FERMÍN WELLS MD DATE: 03/01/25 0994 [facility] [address] [place] [id number] IMAGING REPORT Signed PATIENT: JOCELYNE BONDS MR#: [id number] : 1995 SEX: F AGE: 29 LOCATION: [facility] ORDER [id number] STATUS: ADM IN REPORT#: [id number] SERVICE 175 REASON: sob ORDERING PHYSICIAN: MIGUEL,DARIUS PA PROCEDURE: CXR1VW - CHEST 1VW PORTABLE CHEST RADIOGRAPH INDICATION: sob COMPARISON: None FINDINGS: Heart size is normal. The pulmonary vascularity and nai appear normal. No abnormal pulmonary parenchymal opacity or consolidation identified. No significant pleural effusion noted. No pneumothorax detected. IMPRESSION: No radiographic evidence for any acute cardiopulmonary process. DICTATED BY: ELLEN LIVE MD DATE: 02/28/25 1312 ELECTRONICALLY SIGNED BY: ELLEN LIVE MD DATE: 03/01/25 1643 ASSESSMENT: Hyperthyroidism, TSH <0.01 Tachycardia, POA Acute complicated cystitis, POA Acute febrile illness, POA Dehydration/ketonuria Anemia Hypochloremia Urobilinogen PLAN: Hyperthyroidism, TSH <0.01 -Propranolol 10mg TID started. -Methimazole 5mg daily started. Adjust dose based on technicians and trades workers recommendations -Ultrasound of neck: no lymphadenopathy present -2D Echo: LVEF 50-55%. -Monitor for any fevers. Monitor WBCs, procalcitonin. -Follow blood cultures and urine cultures. -Antibiotics tailored to cultures. Deescalate antibiotics when appropriate -Rocephin2 g IV daily. -Aspirin 81 mg p.o. daily. -Atorvastatin 40 mg PO daily. -Will follow [employer] recommendations -Will follow Chief Privacy Officer recommendations. -Monitor electrolytes and treat accordingly -DVT and GI prophylaxis: Lovenox and Protonix. This plan has been discussed and approved by my attending. JULIA AZAR MD March 01, 2025 12:20
[2025-03-01] MEDS: methIMAZOLE 10 MG TAB PO ONE (12:30)
[2025-03-01] MEDS: methIMAZOLE 10 MG TAB PO SCH (17:19)
[2025-03-02 01:00] VITALS: BP 121/77; PULSE 113; RESP 18; TEMP 97.8
--- NOTE | 2025-03-02 02:11 | NUR ---
REPORT GIVEN TO CLAUDE CAMACHO
[2025-03-02 03:29] VITALS: O2SAT 96
[2025-03-02 04:00] VITALS: BP 122/75; PULSE 107; PULSE 88; RESP 18; TEMP 98.4
[2025-03-02 06:07] LABS: BASOPHILS # (AUTO) 0.01 K/uL (0.00-0.20); BASOPHILS % (AUTO) 0.2 % (0.0-5.0); EOSINOPHILS # (AUTO) 0.08 K/uL (0.00-0.70); EOSINOPHILS % (AUTO) 1.4 % (0.0-8.0); IMMATURE GRANULOCYTE ABSOLUTE 0.03 K/uL (0-1); LYMPHOCYTES # (AUTO) 1.3 K/uL (1.0-4.8); LYMPHOCYTES % (AUTO) 22.6 % (21.0-51.0); MEAN CORPUSCULAR HEMOGLOBIN 28.2 pg (27.0-33.0); MEAN CORPUSCULAR HGB CONC 32.7 g/dL (32.0-36.0); MEAN CORPUSCULAR VOLUME 86.2 fL (79-99); MONOCYTES # (AUTO) 0.4 K/uL (0.1-1.0); MONOCYTES % (AUTO) 6.7 % (3.0-13.0); NEUTROPHILS # (AUTO) 3.8 K/uL (1.8-7.7); NEUTROPHILS % (AUTO) 68.6 % (40.0-77.0); PLATELET COUNT (AUTO) 276 K/uL (130-400); RED BLOOD CELL COUNT(AUTO) 3.83 MIL/uL (4.00-5.50); RED CELL DISTRIBUTION WIDTH 11.5 % (11.0-15.5); WHITE BLOOD COUNT (AUTO) 5.5 K/uL (4.8-10.8)
[2025-03-02 06:25] LABS: ALBUMIN 2.6 g/dL (3.5-5.0); BILIRUBIN,TOTAL 0.5 mg/dL (0.2-1.0); CREATININE 0.5 mg/dL (0.5-1.0); POTASSIUM 4.1 mmol/L (3.5-5.1); TOTAL PROTEIN, SERUM 7.1 g/dL (6.0-8.3)
--- NOTE | 2025-03-02 07:18 | CONS ---
CONSULT NOTE: endocrinology consult chief complaint:palpitations reason for consult: thyrotoxicosis Date of Service: March 02, 2025 T HISTORY OF PRESENT ILLNESS: Ms. Crow is a 29-year-old female with no significant past medical history who [place] [facility] for evaluation of palpitations that started last night. The patient was sent to the emergency department by her primary care doctor for an abnormal EKG. Per ED provider according to the EKG performed at her primary care doctor's the patient had an atrial flutter rhythm. Patient reports having chills, fevers, and fatigue onset four days ago. she was started on Zithromax four days ago for cervical lymphadenopathy and presumed bacterial infection. On arrival with the patient reports chest pressure and palpitations. The patient denied any shortness of breath, dizziness, any other problem or concern. The patient presented to ED with a heart rate of 140 beats per minute, 99� F (T- MAX A 100.2�F), HR 18 beats per minute, 131/82, 100% on room air. In ED the patient was administer propranolol 1 mg IV push, Tylenol 1 g, NS 2 L bolus. WBC WNL at 8.1. Lactic acid 1.2. Troponin <4. Drug screen negative. The patient is negative for COVID, influenza, mono screen, rapid strep. Remarkable lab results: TSH <0.01. Chloride 100, UA: Ketones, occult blood, leukocyte esterase, urobilinogen. Chest x-ray: Negative for any acute cardiopulmonary process. t 4 free 6.46, t 4 total 23.2 and TSH <0.01 REASON: neck lymph nodes evaluation ORDERING PHYSICIAN: JESIKA MAKI [employer] PROCEDURE: SOFT NECK - US SOFT TISSUE NECK Exam Type: US SOFT TISSUE NECK Clinical Information: neck lymph nodes evaluation Comparison: None Findings and impression: Multiple normal sized lymph nodes of the neck seen bilaterally. No obvious lymphadenopathy noted. No other abnormalities. REVIEW OF SYSTEMS 12-point ROS reviewed with the patient. All pertinent positives mentioned above. Otherwise negative, noncontributory, non-pertinent. PAST MEDICAL HISTORY: Negative PAST SURGICAL HISTORY: C-sections PAST SOCIAL HISTORY: Patient denies alcohol, tobacco, illicit drug use. Coded Allergies: No Known Allergies (Unverified Allergy, Unknown, 02/28/25) PHYSICAL EXAM GENERAL APPEARANCE: The patient is awake, alert, and oriented, in no acute cardiopulmonary distress. NEUROLOGICAL: Cranial nerves II-XII grossly intact. Motor is 5/5 in bilateral upper and lower extremities proximal to distal. No sensory deficits. HEENT: Face is symmetric. Pupils are equal and reactive. Extraocular movements are intact. NECK: Supple. No JVD. No thyromegaly. No submental, submandibular, pre- /postauricular, occipital or supraclavicular lymphadenopathy. CHEST: Normal chest expansion. No Telemetry. LUNGS: Absence of any rales, rhonchi or any wheezing. CARDIOVASCULAR: Regular. S1 and S2 normal. No appreciable rubs, murmurs or gallops. ABDOMEN: Soft, nontender, and nondistended. There is no rebound, voluntary guarding, or rigidity. : Deferred. No Hernández. EXTREMITIES: Non-edematous and not cyanotic. No clubbing. Good capillary refill. SKIN: No skin breakdown. ASSESSMENT: thyrotoxicosis likely due to Hyperthyroidism, t 4 free 6.46, t 4 total 23.2 and TSH <0.01 Tachycardia, POA Acute complicated cystitis, POA Acute febrile illness, POA Dehydration/ketonuria Anemia Hypochloremia Urobilinogen PLAN: start methimazole 10 mg tid start propranolol 60 mg bid educated on hyperthyroidism. my suspicion is high for graves disease. TSI ordered. repeat thyroid function in 1 month. patient can follow with me in 1 month patient will need methimazole 10 mg bid and propranolol 60 mg bid at discharge. thanks for allowing me to participate in patient care and will continue to follow up. Vital Signs 03/02/25 03/02/25 03:29 04:00 Temp 98.4 Pulse 107 Resp 18 B/P (MAP) 122/75 Pulse Ox 98 O2 Delivery Room Air O2 Flow Rate 0 FiO2 21 Hematology Labs: Test 03/02/25 05:38 Range/Units White Blood Count 5.5 4.8-10.8 K/uL Red Blood Count 3.83 L 4.00-5.50 MIL/uL Hemoglobin 10.8 L 12.0-16.0 g/dL Hematocrit 33.0 L 36-48 % Mean Corpuscular Volume 86.2 79-99 fL Mean Corpuscular Hemoglobin 28.2 27.0-33.0 pg Mean Corpuscular Hemoglobin Concent 32.7 32.0-36.0 g/dL Red Cell Distribution Width 11.5 11.0-15.5 % Platelet Count 276 130-400 K/uL Mean Platelet Volume 10.1 7.5-10.5 fL Immature Granulocyte % (Auto) 0.5 0-1 % Neutrophils (%) (Auto) 68.6 40.0-77.0 % Lymphocytes (%) (Auto) 22.6 21.0-51.0 % Monocytes (%) (Auto) 6.7 3.0-13.0 % Eosinophils (%) (Auto) 1.4 0.0-8.0 % Basophils (%) (Auto) 0.2 0.0-5.0 % Neutrophils # (Auto) 3.8 1.8-7.7 K/uL Lymphocytes # (Auto) 1.3 1.0-4.8 K/uL Monocytes # (Auto) 0.4 0.1-1.0 K/uL Eosinophils # (Auto) 0.08 0.00-0.70 K/uL Basophils # (Auto) 0.01 0.00-0.20 K/uL Absolute Immature Granulocyte (auto 0.03 0-1 K/uL Nucleated Red Blood Cells 0.0 0.0-0.19 % Chemistry Labs: Test 03/02/25 06:28 03/02/25 05:38 03/01/25 06:06 02/28/25 18:59 Range/Units Whole Blood Glucose 102 70-110 MG/DL Sodium Level 138 136-145 mmol/L Potassium Level 4.1 3.5-5.1 mmol/L Chloride Level 102 101-111 mmol/L Carbon Dioxide Level 28 21-32 mmol/L Blood Urea Nitrogen 4 L 7-18 mg/dL Creatinine 0.5 0.5-1.0 mg/dL Glomerular Filtration Rate Calc 129 >90 mL/min Random Glucose 98 70-105 mg/dL Total Calcium 9.1 8.5-10.1 mg/dL Total Bilirubin 0.5 0.2-1.0 mg/dL Aspartate Amino Transf (AST/SGOT) 11 10-37 U/L Alanine Aminotransferase (ALT/SGPT) 10 L 12-78 U/L Alkaline Phosphatase 88 50-136 U/L Total Protein 7.1 6.0-8.3 g/dL Albumin 2.6 L 3.5-5.0 g/dL Phosphorus Level 3.3 2.5-4.9 mg/dL Magnesium Level 2.00 1.80-2.40 mg/dL Direct Bilirubin 0.1 0.0-0.3 mg/dL Troponin I High Sensitivity < 4 L 4-50 ng/L Thyroid Stimulating Hormone (TSH) < 0.01 L 0.36-3.74 uIU/mL Free Thyroxine (T4) Direct 6.46 H 0.76-1.46 ng/dL Thyroxine (T4) 23.2 H 4.7-13.3 ug/dL Free Triiodothyronine (T3) pg/mL 14.96 H 2.18-3.98 pg/mL Lactic Acid Level 1.2 0.8-2.5 mmol/L Serum Test, Qualitative NEGATIVE NEGATIVE Test 02/28/25 18:04 Range/Units Hemoglobin A1c 5.3 4.0-6.0 % Estimated Average Glucose (eAG) 105 70-126 mg/dL Total Creatine Kinase 39 21-232 U/L Current Medications Medications (Trade) Dose Ordered Sig/Hanna Route Start Time Stop Time Status Last Admin Dose Admin Aspirin (Aspirin 81mg Chew Tab) 81 mg DAILY PO 03/01/25 09:00 03/31/25 08:59 03/01/25 08:34 81 MG Ceftriaxone Sodium (Rocephin 2gm Inj) 2 gm Q24H IVPB 02/28/25 23:30 03/10/25 23:29 03/01/25 23:40 2 GM Enoxaparin Sodium (Lovenox) 40 mg DAILY SQ 03/01/25 09:00 03/31/25 08:59 03/01/25 08:35 40 MG Famotidine (Pepcid 20mg Tab) 20 mg BID PO 03/01/25 09:00 03/31/25 08:59 03/01/25 22:10 20 MG Insulin Human Regular (humuLIN R 100 UNIT/ML 3ML) INSULIN SLIDING SCAL... ACHS SQ 03/01/25 07:30 03/31/25 07:29 Lactated Ringer's 1,000 ml @ 100 mls/hr Q10H IV 03/01/25 05:00 03/31/25 04:59 03/02/25 02:07 100 MLS/HR Methimazole (tapaZOLE) 5 mg DAILY PO 03/02/25 09:00 03/01/25 12:18 DC Methimazole (tapaZOLE) 10 mg TIDMEALS PO 03/01/25 17:00 03/31/25 16:59 03/01/25 17:19 10 MG Propranolol HCl (Inderal) 10 mg Q8H PO 03/01/25 05:00 03/31/25 04:59 03/02/25 05:37 10 MG SILVIA BARRIENTOS MD March 02, 2025 07:18
--- NOTE | 2025-03-02 07:38 | PN ---
[facility] CARDIOLOGY PROGRESS NOTE Date Patient Seen: March 02, 2025 Time of Visit: 07:37 Interval History: [Tele with sinus tachycardia with HR <110 bpm ] Physical Examination: GENERAL: [No acute distress.] HEAD: [Normal with no signs of head trauma.] EYES: [PERRLA, EOMI, conjunctiva and sclera normal.] ENT: [Hearing grossly intact, normal oropharynx.] NECK: [Supple without JVD. There is no tenderness, lymphadenopathy, or masses. No thyromegaly. Normal carotid upstrokes without bruits.] LUNGS: [Clear breath sounds bilaterally. There are right basilar rales one third of the way up the chest. No wheezes, or rhonchi.] HEART: [Normal rhythm, tachycardia. Normal S1 and S2 without mumurs, gallop or rub.] VASC: [Peripheral pulses +2 bilaterally.] ABD: [Bowel sounds normal, soft, nontender, no masses, no organomegaly. No audible bruits.] : [Not examined] LYMPH: [No lymphadenopathy noted.] EXT: [No clubbing, cyanosis or edema.] SKIN: [No rashes or lesions noted.] NEURO: [Awake, alert, and oriented x3. No focal sensory or strength deficits noted.] Laboratory: [ ] Hematology Labs: Test 03/02/25 05:38 Range/Units White Blood Count 5.5 4.8-10.8 K/uL Red Blood Count 3.83 L 4.00-5.50 MIL/uL Hemoglobin 10.8 L 12.0-16.0 g/dL Hematocrit 33.0 L 36-48 % Mean Corpuscular Volume 86.2 79-99 fL Mean Corpuscular Hemoglobin 28.2 27.0-33.0 pg Mean Corpuscular Hemoglobin Concent 32.7 32.0-36.0 g/dL Red Cell Distribution Width 11.5 11.0-15.5 % Platelet Count 276 130-400 K/uL Mean Platelet Volume 10.1 7.5-10.5 fL Immature Granulocyte % (Auto) 0.5 0-1 % Neutrophils (%) (Auto) 68.6 40.0-77.0 % Lymphocytes (%) (Auto) 22.6 21.0-51.0 % Monocytes (%) (Auto) 6.7 3.0-13.0 % Eosinophils (%) (Auto) 1.4 0.0-8.0 % Basophils (%) (Auto) 0.2 0.0-5.0 % Neutrophils # (Auto) 3.8 1.8-7.7 K/uL Lymphocytes # (Auto) 1.3 1.0-4.8 K/uL Monocytes # (Auto) 0.4 0.1-1.0 K/uL Eosinophils # (Auto) 0.08 0.00-0.70 K/uL Basophils # (Auto) 0.01 0.00-0.20 K/uL Absolute Immature Granulocyte (auto 0.03 0-1 K/uL Nucleated Red Blood Cells 0.0 0.0-0.19 % Chemistry Labs: Test 03/02/25 06:28 03/02/25 05:38 03/01/25 06:06 02/28/25 18:59 Range/Units Whole Blood Glucose 102 70-110 MG/DL Sodium Level 138 136-145 mmol/L Potassium Level 4.1 3.5-5.1 mmol/L Chloride Level 102 101-111 mmol/L Carbon Dioxide Level 28 21-32 mmol/L Blood Urea Nitrogen 4 L 7-18 mg/dL Creatinine 0.5 0.5-1.0 mg/dL Glomerular Filtration Rate Calc 129 >90 mL/min Random Glucose 98 70-105 mg/dL Total Calcium 9.1 8.5-10.1 mg/dL Total Bilirubin 0.5 0.2-1.0 mg/dL Aspartate Amino Transf (AST/SGOT) 11 10-37 U/L Alanine Aminotransferase (ALT/SGPT) 10 L 12-78 U/L Alkaline Phosphatase 88 50-136 U/L Total Protein 7.1 6.0-8.3 g/dL Albumin 2.6 L 3.5-5.0 g/dL Phosphorus Level 3.3 2.5-4.9 mg/dL Magnesium Level 2.00 1.80-2.40 mg/dL Direct Bilirubin 0.1 0.0-0.3 mg/dL Troponin I High Sensitivity < 4 L 4-50 ng/L Thyroid Stimulating Hormone (TSH) < 0.01 L 0.36-3.74 uIU/mL Free Thyroxine (T4) Direct 6.46 H 0.76-1.46 ng/dL Thyroxine (T4) 23.2 H 4.7-13.3 ug/dL Free Triiodothyronine (T3) pg/mL 14.96 H 2.18-3.98 pg/mL Lactic Acid Level 1.2 0.8-2.5 mmol/L Serum Test, Qualitative NEGATIVE NEGATIVE Test 02/28/25 18:04 Range/Units Hemoglobin A1c 5.3 4.0-6.0 % Estimated Average Glucose (eAG) 105 70-126 mg/dL Total Creatine Kinase 39 21-232 U/L Diagnostics / Radiology: [Copy/Paste Echos/Imaging Report here] Impression and Plan: [ #Sinus tachycardia d/t Thyroid storm -2d echo normal -propranolol 10 mg q8h -recommend to treat underlying hyperthyroid state -Tele monitoring Xochilt Dawson MD]] XOCHILT DAWSON MD March 02, 2025 07:38
[2025-03-02 08:00] VITALS: BP 124/75; PULSE 107; RESP 16; TEMP 98; O2SAT 100
[2025-03-02] MEDS ORDERED: methIMAZOLE 10 MG TAB PO SCH (09:00)
[2025-03-02 12:00] VITALS: BP 120/68; PULSE 110; RESP 16; TEMP 98
--- NOTE | 2025-03-02 12:02 | PN ---
[facility] PROGRESS NOTE Date of Service: March 02, 2025 Time of Service: 11:58 SUBJECTIVE: Ms. Bonds is a 29-year-old female with no significant past medical history who presented to [facility] for evaluation of palpitations that started last night. The patient was sent to the emergency department by her primary care doctor for an abnormal EKG. Per ED provider according to the EKG performed at her primary care doctor's the patient had an atrial flutter rhythm. Patient reports having chills, fevers, and fatigue onset four days ago and she was started on Zithromax four days ago for cervical lymphadenopathy and presumed bacterial infection. On arrival with the patient reports chest pressure and palpitations. The patient denied any shortness of breath, dizziness, any other problem or concern.The patient presented to ED with a heart rate of 140 beats per minute, 99� F (T-MAX A 100.2�F), HR 18 beats per minute, 131/82, 100% on room air. In ED the patient was administer propranolol 1 mg IV push, Tylenol 1 g, NS 2 L bolus. WBC WNL at 8.1. Lactic acid 1.2. Troponin <4. Drug screen negative. The patient is negative for COVID, influenza, mono screen, rapid strep. Remarkable lab results: TSH <0.01. Chloride 100, UA: Ketones, occult blood, leukocyte esterase, urobilinogen. Chest x-ray: Negative for any acute cardiopulmonary process. 03/01: Patient was seen this morning at bedside. The patient states denies chest pain, shortness of breath, nausea, vomiting, fever, chills. Patient states she still feels episodes of her heart racing. The patient was seen this morning by cardiology. Per cardiology, continue 10 mg Propranolol TID. Patient will be started on Methimazole, dosing per Web Developer recommendations. Thyroid st imulating immunoglobulin pending. 03/02: Patient was seen and examined this morning at beside. The patient states she is feeling well, but still feels her heart racing. The patient denies chest pain, shortness of breath, nausea, vomiting, fever, chills. The patient states that on February 15, she had episodes of diarrhea, fever, chills, and body aches and weakness. The patient states the next day, she was feeling fine. The patient states that on [place], February 21, the patient states she felt fever, chills, d iarrhea, loss of appetite a headache, and she said her neck was tender. The patient states by February 24, the patients heart started racing and that is when she went to her PCP. On examination, a goiter is present, and the patient states there is tenderness during palpitation.The patient is being followed by cardiology, and Endocrinology. We will continue to follow their rec ommendations. REVIEW OF SYSTEMS 12-point ROS reviewed with the patient. All pertinent positives mentioned above. Otherwise negative, noncontributory, non-pertinent. PHYSICAL EXAM GENERAL APPEARANCE: The patient is awake, alert, and oriented, in no acute cardiopulmonary distress. NEUROLOGICAL: Cranial nerves II-XII grossly intact. Motor is 5/5 in bilateral upper and lower extremities proximal to distal. No sensory deficits. HEENT: Face is symmetric. Pupils are equal and reactive. Extraocular movements are intact. NECK: Supple. No JVD. No thyromegaly. No submental, submandibular, pre- /postauricular, occipital or supraclavicular lymphadenopathy. CHEST: Normal chest expansion. No Telemetry. LUNGS: Absence of any rales, rhonchi or any wheezing. CARDIOVASCULAR: Regular. S1 and S2 normal. No appreciable rubs, murmurs or gallops. ABDOMEN: Soft, nontender, and nondistended. There is no rebound, voluntary guarding, or rigidity. : Deferred. No Hernández. EXTREMITIES: Non-edematous and not cyanotic. No clubbing. Good capillary refill. SKIN: No skin breakdown. Vital Signs (last 8hr) Date Time Temp Pulse Resp B/P (MAP) Pulse Ox O2 Delivery O2 Flow Rate FiO2 03/02/25 08:00 100 Room Air* 0 21 03/02/25 08:00 98.1 107 16 124/75 100 Room Air 03/02/25 04:00 98.4 107 18 122/75 98 Room Air LABS: Laboratory: Test 03/02/25 11:48 03/02/25 05:38 03/01/25 06:06 02/28/25 18:59 Range/Units Whole Blood Glucose 102 70-110 MG/DL White Blood Count 5.5 4.8-10.8 K/uL Red Blood Count 3.83 L 4.00-5.50 MIL/uL Hemoglobin 10.8 L 12.0-16.0 g/dL Hematocrit 33.0 L 36-48 % Mean Corpuscular Volume 86.2 79-99 fL Mean Corpuscular Hemoglobin 28.2 27.0-33.0 pg Mean Corpuscular Hemoglobin Concent 32.7 32.0-36.0 g/dL Red Cell Distribution Width 11.5 11.0-15.5 % Platelet Count 276 130-400 K/uL Mean Platelet Volume 10.1 7.5-10.5 fL Immature Granulocyte % (Auto) 0.5 0-1 % Neutrophils (%) (Auto) 68.6 40.0-77.0 % Lymphocytes (%) (Auto) 22.6 21.0-51.0 % Monocytes (%) (Auto) 6.7 3.0-13.0 % Eosinophils (%) (Auto) 1.4 0.0-8.0 % Basophils (%) (Auto) 0.2 0.0-5.0 % Neutrophils # (Auto) 3.8 1.8-7.7 K/uL Lymphocytes # (Auto) 1.3 1.0-4.8 K/uL Monocytes # (Auto) 0.4 0.1-1.0 K/uL Eosinophils # (Auto) 0.08 0.00-0.70 K/uL Basophils # (Auto) 0.01 0.00-0.20 K/uL Absolute Immature Granulocyte (auto 0.03 0-1 K/uL Nucleated Red Blood Cells 0.0 0.0-0.19 % Sodium Level 138 136-145 mmol/L Potassium Level 4.1 3.5-5.1 mmol/L Chloride Level 102 101-111 mmol/L Carbon Dioxide Level 28 21-32 mmol/L Blood Urea Nitrogen 4 L 7-18 mg/dL Creatinine 0.5 0.5-1.0 mg/dL Glomerular Filtration Rate Calc 129 >90 mL/min Random Glucose 98 70-105 mg/dL Total Calcium 9.1 8.5-10.1 mg/dL Total Bilirubin 0.5 0.2-1.0 mg/dL Aspartate Amino Transf (AST/SGOT) 11 10-37 U/L Alanine Aminotransferase (ALT/SGPT) 10 L 12-78 U/L Alkaline Phosphatase 88 50-136 U/L Total Protein 7.1 6.0-8.3 g/dL Albumin 2.6 L 3.5-5.0 g/dL Phosphorus Level 3.3 2.5-4.9 mg/dL Magnesium Level 2.00 1.80-2.40 mg/dL Direct Bilirubin 0.1 0.0-0.3 mg/dL Troponin I High Sensitivity < 4 L 4-50 ng/L Thyroid Stimulating Hormone (TSH) < 0.01 L 0.36-3.74 uIU/mL Free Thyroxine (T4) Direct 6.46 H 0.76-1.46 ng/dL Thyroxine (T4) 23.2 H 4.7-13.3 ug/dL Free Triiodothyronine (T3) pg/mL 14.96 H 2.18-3.98 pg/mL Lactic Acid Level 1.2 0.8-2.5 mmol/L Serum Test, Qualitative NEGATIVE NEGATIVE Test 02/28/25 18:17 02/28/25 18:15 02/28/25 18:04 Range/Units Urine Color LIGHT-YELLOW YELLOW Urine Appearance CLEAR CLEAR Urine pH 7.0 5.0-8.0 Urine Specific Francis 1.010 1.001-1.031 Urine Protein NEGATIVE NEGATIVE mg/dL Urine Glucose (UA) NEGATIVE NEGATIVE mg/dL Urine Ketones 20 H NEGATIVE mg/dL Urine Occult Blood SMALL H NEGATIVE Urine Nitrate NEGATIVE NEGATIVE Urine Bilirubin NEGATIVE NEGATIVE mg/dL Urine Urobilinogen 2.0 H 0.2-1.0 mg/dL Urine Leukocyte Esterase 250 H NEGATIVE Elizabeth/uL Urine RBC 2-5 H 0-1 /HPF Urine WBC 6-10 H 0-1 /HPF Urine Squamous Epithelial Cells FEW 0-2 /HPF Urine Bacteria RARE None Seen /HPF Urine Opiates Screen NEGATIVE NEGATIVE Urine Barbiturates Screen NEGATIVE NEGATIVE Urine Phencyclidine Screen NEGATIVE NEGATIVE Urine Amphetamines Screen NEGATIVE NEGATIVE Urine Benzodiazepines Screen NEGATIVE NEGATIVE Urine Cocaine Screen NEGATIVE NEGATIVE Urine Marijuana (THC) Screen NEGATIVE NEGATIVE Influenza Type A Antigen Negative For Type A NEGATIVE Influenza Type B Antigen Negative For Type B NEGATIVE SARS-CoV-2, RNA, NAAT NEGATIVE SARS CoV-2 NEGATIVE Group A Streptococcus Rapid negative NEGATIVE Hemoglobin A1c 5.3 4.0-6.0 % Estimated Average Glucose (eAG) 105 70-126 mg/dL Total Creatine Kinase 39 21-232 U/L Monoscreen NEGATIVE NEGATIVE Current Medications Medications (Trade) Dose Ordered Sig/Hanna Route PRN Reason Start Time Stop Time Status Last Admin Dose Admin Acetaminophen (TYLenol 325MG TAB) 650 mg Q6H PRN PO FEVER/MILD PAIN LEVEL 1-3 02/28/25 23:30 03/30/25 23:29 03/01/25 18:39 650 MG Acetaminophen (TYLenol 650MG SUPPOSITORY) 650 mg Q6H PRN RC FEVER / MILD PAIN 1-3 IF NPO 02/28/25 23:30 03/30/25 23:29 Aspirin (Aspirin 81mg Chew Tab) 81 mg DAILY PO 03/01/25 09:00 03/31/25 08:59 03/02/25 10:19 81 MG Ceftriaxone Sodium (Rocephin 2gm Inj) 2 gm Q24H IVPB 02/28/25 23:30 03/10/25 23:29 03/01/25 23:40 2 GM Dextrose (D50w) 50 ml AD PRN IV HYPOGLYCEMIA PROTOCOL 02/28/25 23:30 03/30/25 23:29 Docusate Sodium (COLace 100MG CAP) 100 mg BID PRN PO c 02/28/25 23:30 03/30/25 23:29 Enoxaparin Sodium (Lovenox) 40 mg DAILY SQ 03/01/25 09:00 03/31/25 08:59 03/02/25 10:20 40 MG Famotidine (Pepcid 20mg Tab) 20 mg BID PO 03/01/25 09:00 03/31/25 08:59 03/02/25 10:19 20 MG Glucagon (Glucagon 1mg Kit) 1 mg AD PRN IM HYPOGLYCEMIA PROTOCOL 02/28/25 23:30 03/30/25 23:29 Insulin Human Regular (humuLIN R 100 UNIT/ML 3ML) INSULIN SLIDING SCAL... ACHS SQ 03/01/25 07:30 03/31/25 07:29 Labetalol HCl (TRANdate 20MG SYG) 10 mg Q2H PRN IV SBP GREATER THAN 160 02/28/25 23:30 03/30/25 23:29 Lactated Ringer's 1,000 ml @ 100 mls/hr Q10H IV 03/01/25 05:00 03/31/25 04:59 03/02/25 02:07 100 MLS/HR Lactulose (Constulose 20gm/ 30ml Udcup) 20 gm Q6H PRN PO CONSTIPATION 02/28/25 23:30 03/30/25 23:29 Magnesium Sulfate 50 ml @ 0 mls/hr PROTOCOL PRN IV MAGNESIUM PROTOCOL 02/28/25 23:30 03/30/25 23:29 Methimazole (tapaZOLE) 5 mg DAILY PO 03/02/25 09:00 03/01/25 12:18 DC Methimazole (tapaZOLE) 10 mg TIDMEALS PO 03/01/25 17:00 03/31/25 16:59 03/02/25 10:19 10 MG Ondansetron HCl (zoFRAN 4MG INJ) 4 mg Q6H PRN IVP NAUSEA/VOMITING 02/28/25 23:30 03/30/25 23:29 Potassium Chloride 100 ml @ 100 mls/hr AD PRN IV POTASSIUM PROTOCOL 02/28/25 23:30 03/30/25 23:29 Potassium Chloride (K-Dur/Klor-Con 20meq) 20 meq AD PRN PO POTASSIUM PROTOCOL 02/28/25 23:30 03/30/25 23:29 Potassium Chloride (KCl 10% Elixir 20meq/15ml) 20 meq AD PRN PO POTASSIUM PROTOCOL 02/28/25 23:30 03/30/25 23:29 Propranolol HCl (Inderal) 10 mg Q8H PO 03/01/25 05:00 03/31/25 04:59 03/02/25 05:37 10 MG Temazepam (restORIL 15 MG CAP) 15 mg HS PRN PO INSOMNIA/SLEEP 02/28/25 23:30 03/30/25 23:29 DIAGNOSTICS / RADIOLOGY: [address] [address] IMAGING REPORT Signed PATIENT: JOCELYNE BONDS MR#: [id number] : 1995 SEX: F AGE: 29 LOCATION: EDHIP ORDER 28 STATUS: ADM IN REPORT#: [id number] SERVICE 19 REASON: tachycardia ORDERING PHYSICIAN: JESIKA MAKI WEIGHER AND CHARGER PROCEDURE: ECHO CMP - ECHO 2-D COMPLETE APPROVED REPORT EXAM: Two-dimensional and M-mode echocardiogram with Doppler and color Doppler. INDICATION ICD: tachycardia 2D Dimensions RVDd 3.9 cm LVEF(%) 51.6 (>50%) LVED Vol(simp.) 85.0 mL IVSd 0.6 (0.7-1.1cm) FS(%) 26 % LVES Vol(simp.) 40.0 mL LVDd 4.7 (3.8-5.6cm) LA (2D) 3.1 (1.6-4.0cm) LVEF(%, simp.) 53 % PWd 0.5 (0.7-1.1cm) Ao Root(2D) 2.7 (2.0-3.7cm) LA ESV INDEX (BP) 25.55 mL/m2 IVSs 0.9 cm LVOT diam 2.1 (1.8-2.4cm) LVDs 3.5 (2.5-4.0cm) IVC diam 2.5 cm PWs 0.7 cm Deformation Strain Apical 4 -17.9 % Apical 2 -18.6 % Apical 3 -18.9 % Global Strain -18.5 % M-Mode Dimensions EPSS 0.5 cm LA (MM) 3.1 (1.6-4.0cm) Ao Root(MM) 2.6 (2.0-3.7cm) Aortic Valve AoV Vmax 1.2 m/s Ao Peak GR 6.1 mmHg LVOT Vmax 0.9 m/s AoV VTI 0.2 m Ao Mean GR 3.7 mmHg LVOT VTI 0.16 m GHADA (VMAX) 2.37 cm2 GHADA (VTI) 2.4 cm2 Mitral Valve MV E Vmax 89.9 cm/s DECEL Time 151 ms MV A Vmax 69.3 cm/s P 1/2 T 31 ms E/A ratio 1.3 MVA (PHT) 7.2 cm2 TDI E/E' Medial 9.0 E/E' Lateral 6.7 Medial E' Peak V 9.95 cm/s Lateral E' Peak V 13.44 cm/s Pulmonary Valve PV Vmax 0.9 m/s PV VTI 0.17 m PV Mean GR 2.0 mmHg PV Peak GR 3.3 mmHg Tricuspid Valve TR Vmax 2.3 m/s RVSP 21.5 mmHg TR Peak GR 22.8 mmHg Left Ventricle The left ventricle is normal size. There is normal left ventricular wall thickness. LVEF is 50-55%. The left ventricular diastolic function is normal. Right Ventricle The right ventricle is normal size. The right ventricular systolic function is normal. Atria The left atrium size is normal. The right atrium size is normal. Aortic Valve The aortic valve is normal in structure. No aortic regurgitation is present. There is no aortic valvular stenosis. Mitral Valve The mitral valve is normal in structure. Mitral regurgitation is mild. There is no mitral valve stenosis. Tricuspid Valve The tricuspid valve is normal in structure. There is mild tricuspid valve r egurgitation noted. Pulmonic Valve The pulmonary valve is normal in structure. There is no pulmonic valvular regurgitation. Great Vessels The aortic root is normal in size. The IVC is dilated and collapses >50% with inspiration. Pericardium There is no pericardial effusion. Conclusion The left ventricle is normal size. LVEF is 50-55%. The left ventricular diastolic function is normal. The right ventricle is normal size. The right ventricular systolic function is normal. The left atrium size is normal. The right atrium size is normal. Mitral regurgitation is mild. There is mild tricuspid valve regurgitation noted. The IVC is dilated and collapses >50% with inspiration. There is no pericardial effusion. DICTATED BY: JOÃO PAEZ MD DATE: 03/01/25 0921 ELECTRONICALLY SIGNED BY: JOÃO PAEZ MD DATE: 03/01/25 1111 ASSESSMENT: Hyperthyroidism, TSH <0.01 Tachycardia, POA Acute complicated cystitis, POA Acute febrile illness, POA Dehydration/ketonuria Anemia Hypochloremia Urobilinogen PLAN: Hyperthyroidism, TSH <0.01 -Propranolol 10mg TID started. -Methimazole 5mg daily started. Adjust dose based on batch freezer recommendations -Ultrasound of neck: no lymphadenopathy present -2D Echo: LVEF 50-55%. -Monitor for any fevers. Monitor WBCs, procalcitonin. -Follow blood cultures and urine cultures. -Antibiotics tailored to cultures. Deescalate antibiotics when appropriate -Rocephin2 g IV daily. -Aspirin 81 mg p.o. daily. -Atorvastatin 40 mg PO daily. -Will follow Trimmer Sorter recommendations -Will follow Web Developer recommendations. -Monitor electrolytes and treat accordingly -DVT and GI prophylaxis: Lovenox and Protonix. This plan has been discussed and approved by my attending. JULIA AZAR MD March 02, 2025 12:02
--- NOTE | 2025-03-02 13:40 | DS ---
Discharge Summary Hospital Course Summary: Patient is a 29-year-old female with no significant past medical history who presented to [facility] ED for evaluation of palpitations that started last night. The patient was sent to the emergency department by her primary care doctor for an abnormal EKG, showing atrial flutter rhythm. Patient reported that she began having chills, fevers, and fatigue onset four days ago, and was started on Zithromax that time for cervical lymphadenopathy and presumed bacterial infection. The patient presented to ED with a heart rate of 140 beats per minute, 99� F (T-MAX A 100.2�F), HR 18 beats per minute, 131/82, 100% on room air. In the emergency department, the patient was administer propranolol 1 mg IV push, Tylenol 1 g, NS 2 L bolus. Labs in the ED was remarkable for Tsh <0.01. A urinalysis was positive for Ketones, occult blood, leukocyte esterase, urobilinogen. Patient was started on Rocephin for her urinary tract infection. Chest x-ray was preformed, and was negative for any acute cardiopulmonary process. Cardiology and Endocrinology were both consulted. A 2D echocardiogram was preformed, which showed a LVEF of 50-55%. It was noted that the patients free T4 was 6.46, free T3 was 14.96, and thyroxine was 23.2. The patient was started on Propranolol for her tachycardia, as well as Methimazole for her hyperthyroidism. The patient heart rate was well controlled on the medication.The patient was deemed stable for discharge by Endocrinology. The underwear cutter will be discharging the patient on Methimazole, and an increased dose of her Propranolol. I spoke to the patient and explained these changes, and made the patient aware of the increased dose of Propranolol that will be given on discharge. The patient was advised to monitor her heart rate closely. The patient was advised to adjust her Propranolol dosage as needed, as advised by Dr. Cummings, and to follow up with him in his clinic with 2 weeks upon discharge. Chief Psychologist(s): Endocrinology Cardiology Procedure(s): [place] [address] [place] [id number] IMAGING REPORT Signed PATIENT: JOCELYNE BONDS MR#: [id number] : 1995 SEX: F AGE: 29 LOCATION: EDHIP ORDER 28 STATUS: ADM IN REPORT#: [id number] SERVICE 19 REASON: tachycardia ORDERING PHYSICIAN: JESIKA MAKI PROCEDURE: ECHO CMP - ECHO 2-D COMPLETE APPROVED REPORT EXAM: Two-dimensional and M-mode echocardiogram with Doppler and color Doppler. INDICATION ICD: tachycardia 2D Dimensions RVDd 3.9 cm LVEF(%) 51.6 (>50%) LVED Vol(simp.) 85.0 mL IVSd 0.6 (0.7-1.1cm) FS(%) 26 % LVES Vol(simp.) 40.0 mL LVDd 4.7 (3.8-5.6cm) LA (2D) 3.1 (1.6-4.0cm) LVEF(%, simp.) 53 % PWd 0.5 (0.7-1.1cm) Ao Root(2D) 2.7 (2.0-3.7cm) LA ESV INDEX (BP) 25.55 mL/m2 IVSs 0.9 cm LVOT diam 2.1 (1.8-2.4cm) LVDs 3.5 (2.5-4.0cm) IVC diam 2.5 cm PWs 0.7 cm Deformation Strain Apical 4 -17.9 % Apical 2 -18.6 % Apical 3 -18.9 % Global Strain -18.5 % M-Mode Dimensions EPSS 0.5 cm LA (MM) 3.1 (1.6-4.0cm) Ao Root(MM) 2.6 (2.0-3.7cm) Aortic Valve AoV Vmax 1.2 m/s Ao Peak GR 6.1 mmHg LVOT Vmax 0.9 m/s AoV VTI 0.2 m Ao Mean GR 3.7 mmHg LVOT VTI 0.16 m GHADA (VMAX) 2.37 cm2 GHADA (VTI) 2.4 cm2 Mitral Valve MV E Vmax 89.9 cm/s DECEL Time 151 ms MV A Vmax 69.3 cm/s P 1/2 T 31 ms E/A ratio 1.3 MVA (PHT) 7.2 cm2 TDI E/E' Medial 9.0 E/E' Lateral 6.7 Medial E' Peak V 9.95 cm/s Lateral E' Peak V 13.44 cm/s Pulmonary Valve PV Vmax 0.9 m/s PV VTI 0.17 m PV Mean GR 2.0 mmHg PV Peak GR 3.3 mmHg Tricuspid Valve TR Vmax 2.3 m/s RVSP 21.5 mmHg TR Peak GR 22.8 mmHg Left Ventricle The left ventricle is normal size. There is normal left ventricular wall thickness. LVEF is 50-55%. The left ventricular diastolic function is normal. Right Ventricle The right ventricle is normal size. The right ventricular systolic function is normal. Atria The left atrium size is normal. The right atrium size is normal. Aortic Valve The aortic valve is normal in structure. No aortic regurgitation is present. There is no aortic valvular stenosis. Mitral Valve The mitral valve is normal in structure. Mitral regurgitation is mild. There is no mitral valve stenosis. Tricuspid Valve The tricuspid valve is normal in structure. There is mild tricuspid valve regurgitation noted. Pulmonic Valve The pulmonary valve is normal in structure. There is no pulmonic valvular regurgitation. Great Vessels The aortic root is normal in size. The IVC is dilated and collapses >50% with inspiration. Pericardium There is no pericardial effusion. Conclusion The left ventricle is normal size. LVEF is 50-55%. The left ventricular diastolic function is normal. The right ventricle is normal size. The right ventricular systolic function is normal. The left atrium size is normal. The right atrium size is normal. Mitral regurgitation is mild. There is mild tricuspid valve regurgitation noted. The IVC is dilated and collapses >50% with inspiration. There is no pericardial effusion. DICTATED BY: JOÃO PAEZ MD DATE: 03/01/25 0921 ELECTRONICALLY SIGNED BY: JOÃO PAEZ MD DATE: 03/01/25 1111 [place] [address] [address] IMAGING REPORT Signed PATIENT: JOCELYNE BONDS MR#: [id number] : 1995 SEX: F AGE: 29 LOCATION: EDHIP ORDER 0454 STATUS: ADM IN REPORT#: [id number] SERVICE 0447 REASON: neck lymph nodes evaluation ORDERING PHYSICIAN: JESIKA MAKI SKIAGRAPHER PROCEDURE: SOFT NECK - US SOFT TISSUE NECK Exam Type: US SOFT TISSUE NECK Clinical Information: neck lymph nodes evaluation Comparison: None Findings and impression: Multiple normal sized lymph nodes of the neck seen bilaterally. No obvious lymphadenopathy noted. No other abnormalities. DICTATED BY: FERMÍN WELLS MD DATE: 03/01/25849 ELECTRONICALLY SIGNED BY: FERMÍN WELLS MD DATE: 03/01/2550 [place] [id number] [place] [id number] IMAGING REPORT Signed PATIENT: JOCELYNE BONDS MR#: [id number] : 1995 SEX: F AGE: 29 LOCATION: EDHIP ORDER 54 STATUS: ADM IN REPORT#: [id number] SERVICE 50 REASON: sob ORDERING PHYSICIAN: TELLO RIVERA PROCEDURE: CXR1VW - CHEST 1VW PORTABLE CHEST RADIOGRAPH INDICATION: sob COMPARISON: None FINDINGS: Heart size is normal. The pulmonary vascularity and nai appear normal. No abnormal pulmonary parenchymal opacity or consolidation identified. No significant pleural effusion noted. No pneumothorax detected. IMPRESSION: No radiographic evidence for any acute cardiopulmonary process. DICTATED BY: ELLEN LIVE MD DATE: 02/28/25 185 ELECTRONICALLY SIGNED BY: ELLEN LIVE MD DATE: 03/01/25 0933 Assessment/Plan: ASSESSMENT: Hyperthyroidism, TSH <0.01 Tachycardia, POA Acute complicated cystitis, POA Acute febrile illness, POA Dehydration/ketonuria Anemia Hypochloremia Urobilinogen Discharge Instructions: Follow up appointments: Patient is advised to follow up with [facility] Dr. Cummings within 2 weeks upon discharge. The patient is advised to follow up with PCP within 1 week upon discharge. Procedures: none Imaging: report attached to summary Activity; Ad sai Home medications: n/a New medications: Propranolol, Methimazole. Teaching: Patient advised to monitor heart rate and blood pressure at home, and adjust her propranolol as needed. This was discussed with the patient, as well as with the underwear cutter. The patient verbalized understanding. We reinforced the importance of compliance with follow up appointments, and with medication compliance. Patient advised to meet with [facility] within 2 weeks upon discharge. Emergency instructions: The patient was instructed to present to the nearest Emergency Department or call 911 should their symptoms return or worsen. New Medications: Nitrofurantoin/Nitrofuran Mac (Macrobid) 100 Mg Cap 1 CAP PO BID for 5 Days, #10 CAP 0 Refills JULIA AZAR MD March 02, 2025 13:40
[2025-03-02 16:00] VITALS: BP 121/74; PULSE 119; RESP 16; TEMP 98
[2025-03-02] MEDS ORDERED: MACR100 PO (17:29)
--- NOTE | 2025-03-04 17:31 | NUR ---
Transitional Phone Call Attempted to call twice, no voicemail box [phone]/wrong number [phone]. Addendum: 03/04/25 at 1733 by ELINOR HODGE RN CM Above chart on incorrect patient chart. Correction: Transitional Phone Call Attempted to call twice, left message [phone] and no return call.
== END 2025-03-02 17:50 | disposition home or self-care (01) | DRG 644 ==
LOC: EDH 17:43 → EDHIP 20:38 → 2DH 03-02 02:15
PROVIDERS: ADMIT Internal Medicine; ATTEND Internal Medicine
DX: E05.91 Thyrotoxicosis, unspecified with thyrotoxic crisis or storm (principal); I48.92 Unspecified atrial flutter; N30.00 Acute cystitis without hematuria; E86.0 Dehydration; E87.8 Other disorders of electrolyte and fluid balance, not elsewhere classified; I34.0 Nonrheumatic mitral (valve) insufficiency; R82.4 Acetonuria; D64.9 Anemia, unspecified; I10 Essential (primary) hypertension; K59.00 Constipation, unspecified; Z79.82 Long term (current) use of aspirin; Z79.899 Other long term (current) drug therapy; Z98.891 History of uterine scar from previous surgery
CPT/HCPCS: 36415; 71045; 76536; 80048; 80053; 80076; 80305; 81001; 82550; 82948; 83036; 83605; 83735; 84100; 84436; 84439; 84443; 84445; 84481; 84484; 84703; 85025; 85027; 86308; 87040; 87086; 87635; 87804; 87880; 93005; 93306; 93356; 96365; 99285; G0378; J0696; J1650; J1800; J1815; J7030